=== PATIENT | male | born 1950 | race Caucasian/White ===

== ENCOUNTER 2022-10-14 10:53 | Outpatient (CLI) | payer MEDICARE, MEDICAID, SELFPAY | END 2022-10-14 10:54 | disposition home or self-care (01) | LOC: INJ CL 10:56 | PROVIDERS: PCP Surgery; Visit Provider Family Medicine | DX: M54.16 Radiculopathy, lumbar region (principal); M51.36 Other intervertebral disc degeneration, lumbar region | CPT/HCPCS: 64483; J1100; Q9966 ==

== ENCOUNTER 2022-12-26 13:49 | Inpatient (IN) | payer MEDICARE, MEDICAID, SELFPAY ==
[2022-12-26] VITALS (55 sets, daily range): BP systolic 109–134; BP diastolic 68–90; PULSE 75–93; RESP 16; TEMP 37; O2SAT 88–97; BMI 30.2; BMI 31.0
--- NOTE | 2022-12-26 13:56 | CRLHL7_ITS ---
For Patients: As a result of the Century Cures Act, medical imaging exams and procedure reports are released immediately into your electronic medical record. You may view this report before your referring provider. If you have questions, please contact your health care provider. INDICATION: Shortness of breath TECHNIQUE: Chest 2 views. COMPARISON: None FINDINGS: Cardiovascular and mediastinum: Heart size and vasculature are normal in caliber and appearance. Mediastinum is within normal limits. Either hernia. Lungs and pleural spaces: Lungs are clear. No sign of infiltrate or mass. No sign of pleural effusion. No pneumothorax. Bones and soft tissues: Change changes thoracic spine. IMPRESSION: No acute findings. Hiatal hernia. Dictated by Man Antoine MD @ 12/26/2022 2:39:06 PM (Electronically Signed)
[2022-12-26 14:08] LABS: Lactate* 2.2 mmol/L (0.5-1.9)
[2022-12-26 14:11] LABS: Basophils Percent Auto 0.2 % (0.0-3.0); Eosinophils Percent Auto 0.1 % (0.0-7.0); Hematocrit 44.1 % (37.0-53.0); Hemoglobin* 14.9 gm/dL (13.5-17.5); Immature Granulocytes Pct Auto 1.1 %; Lymphocytes Percent Auto 1.5 % (20-44); Mean Corpuscular HGB Conc 34 gm/dL (32-36); Mean Corpuscular Hemoglobin 28 pg (26-34); Mean Corpuscular Volume 82 fL (80-100); Monocytes Percent Auto 16.6 % (0.0-11.0); Neutrophils Percent Auto 80.5 % (42.0-72.0); Platelet Count* 117 K/uL (140-440); RDW Coefficient of Variation % 12.8 % (11.5-15.5); Red Blood Count 5.39 m/uL (4.30-5.90); White Blood Count* 18.86 K/uL (4.50-11.00)
[2022-12-26 14:28] LABS: Albumin* 4.1 g/dL (3.3-5.0); Chloride* 102 mmol/L (96-114); Sodium* 137 mmol/L (135-149)
[2022-12-26 14:29] LABS: Potassium* 3.8 mmol/L (3.6-5.1)
[2022-12-26 14:30] LABS: Creatinine* 1.4 mg/dL (0.5-1.5); Est. Creatinine Clearance* 57.08; Estimated Glomerular Filt Rate 54 ml/min; Mono Screen* Negative (Negative)
[2022-12-26 14:31] LABS: Alanine Aminotransferase* 135 U/L (4-50); Alkaline Phosphatase* 83 U/L (40-150); Aspartate Amino Transferase* 264 U/L (12-35); Bilirubin Direct* 2.5 mg/dL (0.0-0.5); Bilirubin Total* 6.9 mg/dL (0.1-1.5); Blood Urea Nitrogen* 23 mg/dL (7-30); Calcium* 8.9 mg/dL (8.4-10.6); Carbon Dioxide* 30 mmol/L (20-32); Glucose* 116 mg/dL (60-115); Total Protein* 7.7 g/dL (6.0-8.3)
[2022-12-26 14:33] LABS: Acetaminophen* < 10.0 ug/mL (10.0-30.0); Ethanol* < 0.01 % (0.01-0.03)
[2022-12-26 14:34] LABS: C Reactive Protein* 2.3 mg/dL (0.5-1.0)
[2022-12-26] MEDS: 0.9 % SODIUM CHLORIDE 500 ML 500 ML IV (14:34)
--- NOTE | 2022-12-26 14:35 | CRLHL7_ITS ---
For Patients: As a result of the Century Cures Act, medical imaging exams and procedure reports are released immediately into your electronic medical record. You may view this report before your referring provider. If you have questions, please contact your health care provider. INDICATION: Elevated liver enzymes. TECHNIQUE: Ultrasound abdomen limited. Sonographic images of the right upper quadrant were obtained using almonte-scale and color Doppler images. COMPARISON: None FINDINGS: Liver: Increased echogenicity of the liver parenchyma. Bile ducts: Intrahepatic bile ducts are not dilated. Mild dilation of the common bile duct, measures up to 0.9 cm. No choledocholithiasis identified sonographically. Gallbladder: Multiple dependent small gallstones. Focal fatty sparing is present in the liver adjacent to the gallbladder fossa, no significant pericholecystic fluid. Negative sonographic Cook`s sign. Pancreas: Pancreas is poorly visualized secondary to acoustic shadowing from overlying/adjacent bowel gas. Right kidney: The right kidney measures 12.3 cm in length. No renal calculi or significant hydronephrosis is identified. Aorta: No aneurysmal dilation. IVC is patent. IMPRESSION: 1. Increased echogenicity of the liver parenchyma, compatible with diffuse hepatic steatosis. 2. Mild dilation of the common bile duct measuring up to 0.9 cm. No choledocholithiasis is identified sonographically. Recommend correlation with serum alkaline phosphatase. 3. Cholelithiasis, without secondary signs of acute cholecystitis. Dictated by Dorita Calle MD @ 12/26/2022 4:18:49 PM (Electronically Signed)
[2022-12-26 14:43] LABS: Slide Review Reflex Yes; Troponin I* 0.01 ng/mL (0.01-0.04)
[2022-12-26 14:44] LABS: Slide Review Acceptable Review (Acceptable)
[2022-12-26 14:48] LABS: PCR FLU A Negative PCR FLU A (Negative); PCR FLU B Negative PCR FLU B (Negative)
[2022-12-26 14:52] LABS: Erythrocyte SedimentationRate* 5 mm/hr (2-15)
[2022-12-26 14:53] LABS: SARS PCR* Negative SARS-CoV-2 (Negative)
--- NOTE | 2022-12-26 15:11 | CRLHL7_ITS ---
For Patients: As a result of the Century Cures Act, medical imaging exams and procedure reports are released immediately into your electronic medical record. You may view this report before your referring provider. If you have questions, please contact your health care provider. INDICATION: Fever. Elevated liver enzymes. TECHNIQUE: CT abdomen and pelvis acquired with 99 mL Isovue 370 contrast. COMPARISON: Abdomen ultrasound earlier same day dated 12/26/2022. FINDINGS: Lower chest: No focal consolidation. Bibasilar subsegmental atelectasis. Liver: Diffuse hepatic steatosis. No suspicious focal hepatic lesion. Gallbladder and bile ducts: Extensive cholelithiasis. There is trace amount of gallbladder wall edema, however the gallbladder itself is not distended and no pericholecystic inflammatory changes are present. The common bile duct measures up to 0.8 cm, no calcified choledocholithiasis is identified. Pancreas: Unremarkable. Spleen: Unremarkable. Adrenal glands: Subcentimeter left adrenal nodules, too small to characterize. Kidneys: Kidneys enhance symmetrically, without hydronephrosis. Simple appearing left renal cysts are noted. Too small to characterize hypodense right renal lesions. Retroperitoneum: No lymphadenopathy. Bowel and mesentery: Bowel is nonobstructed. Scattered colonic diverticulosis, without evidence of acute diverticulitis. Normal appendix. No significant ascites. Large hiatal hernia. No pneumoperitoneum. Bladder: Unremarkable for degree of distension. Reproductive organs: Significant prostatomegaly. Pelvic lymph nodes: No lymphadenopathy. Vessels: Scattered atherosclerotic calcifications. Abdominal wall: Small fat filled bilateral inguinal hernias. Bones: Multilevel degenerative changes of the spine. No suspicious/aggressive focal osseous lesion. IMPRESSION: 1. Extensive cholelithiasis. Trace amount of gallbladder wall edema is present, however the gallbladder itself is not distended and no pericholecystic inflammatory changes are present. 2. Common bile duct remains mildly dilated measuring up to 0.8 cm. No calcified choledocholithiasis is identified. 3. Large hiatal hernia. 4. Significant prostatomegaly. Correlate with serum PSA. 5. Additional incidental findings as above. Please note that all CT scans at this facility use dose modulation, iterative reconstruction, and/or weight-based dosing when appropriate to reduce radiation dose to as low as reasonably achievable. Dictated by Dorita Calle MD @ 12/26/2022 5:52:45 PM (Electronically Signed)
[2022-12-26 15:55] LABS: Ammonia* < 9.0 umol/L (13.1-30.0)
[2022-12-26 16:48] LABS: Lactate* 1.6 mmol/L (0.5-1.9)
--- NOTE | 2022-12-26 17:09 | ED.GENADULT ---
HPI - General Adult General Chief complaint: Dizziness/Vertigo Stated complaint: Possible stroke Time Seen by Provider: 12/26/22 13:55 Source: patient Mode of arrival: wheelchair Limitations: no limitations History of Present Illness HPI narrative: 72-year-old male coming in today saying that he has not felt good since last night. Complains of feeling lightheaded. He denies headache, blurry vision, slurred speech, nausea vomiting, chest or abdominal pain. He denies any diarrhea or constipation. He denies any urinary symptoms. He denies swelling of the extremities. He denies any joint pain. He does complain of generally not feeling well and fatigue. He tells me that he usually uses a cane to get around but since last night has needed to use 2 canes because he feels weak. No recent travel. No sick contacts that he is aware of. He denies any focal neurologic deficits, changes in his speech, changes in mentation. Of note, he did a right knee steroid injection last week. Related Data Home Medications Medication Instructions Recorded Confirmed albuterol sulfate 90 mcg/actuation 2 inh inhalation Q4H PRN 12/26/22 12/26/22 aerosol inhaler (Ventolin HFA) amlodipine 10 mg tablet 10 mg PO DAILY 12/26/22 12/26/22 calcipotriene 0.005 % topical 1 applic topical DAILY PRN 12/26/22 12/26/22 cream (Dovonex) carvedilol 25 mg tablet 50 mg PO BID 12/26/22 12/26/22 diclofenac sodium 1 % topical gel 2 g topical QID PRN 12/26/22 12/26/22 gabapentin 300 mg capsule 300 mg PO BID 12/26/22 12/26/22 hydrochlorothiazide 25 mg tablet 25 mg PO DAILY 12/26/22 12/26/22 lisinopril 40 mg tablet 40 mg PO DAILY 12/26/22 12/26/22 naloxegol 25 mg tablet (Movantik) 25 mg PO DAILY 12/26/22 12/26/22 omeprazole 20 mg capsule,delayed 20 mg PO DAILY 12/26/22 12/26/22 release oxycodone-acetaminophen 7.5 mg-325 1 tab PO Q6H 12/26/22 12/26/22 mg tablet rivaroxaban 20 mg tablet (Xarelto) 20 mg PO DAILY 12/26/22 12/26/22 secukinumab 150 mg/mL subcutaneous 150 mg subcut .MONTHLY 12/26/22 12/26/22 pen injector (Cosentyx Pen 300 mg/2 Pens () sildenafil (pulm.hypertension) 20 40 - 100 mg PO PRN PRN sexual 12/26/22 12/26/22 mg tablet activity spironolactone 100 mg tablet 100 mg PO DAILY 12/26/22 12/26/22 sulfasalazine 500 mg tablet 1.5 g PO BID 12/26/22 12/26/22 triamcinolone acetonide 0.5 % 1 applic topical BID PRN 12/26/22 12/26/22 topical cream Allergies Allergy/AdvReac Type Severity Reaction Status Date / Time ibuprofen Allergy Verified 12/26/22 15:33 naproxen Allergy Verified 12/26/22 15:33 Review of Systems Status of ROS: Reports: 10 or more systems reviewed and unremarkable except as noted in History and below PFSH FOR[facility] Medical History (Updated 12/26/22 @ 19:24 by Damaris Swift MD) BPH w urinary obs/LUTS Chronic pain GERD (gastroesophageal reflux disease) History of prostate cancer History of pulmonary embolus (PE) Hypertension Lumbar stenosis Narcotic dependency, continuous Personal history of DVT (deep vein thrombosis) Psoriatic arthritis Surgical History (Updated 12/26/22 @ 18:49 by Bárbara Horowitz MD) H/O lumbosacral spine surgery H/O vasectomy History of inguinal hernia repair, bilateral History of oral surgery Umbilical hernia Social History Smoking Status: Former smoker What tobacco products do you use: cigarettes Smoking quit date/years: <= 15 years ago Do you use any of these nicotine containing products: Smokeless Tobacco Second hand tobacco smoke exposure: No How often do you have a drink containing alcohol: 2-4 times a month AUDIT-C Alcohol total score: 2 Non-prescribed substance use: denies use service: Yes Exam Narrative: Exam Narrative: Well-nourished well-developed patient in no acute distress. Alert and oriented x3. Answers questions appropriately. Mood and affect are appropriate. Thoughts are goal oriented and rational. No tangential or magical thinking noted. Patient speaks in full sentences without needing to catch his breath. Speech is not slurred or pressured. He does need assistance with ambulation and cannot ambulate independently today. HEENT: Normocephalic atraumatic. Pupils are equally round reactive to light. Extraocular muscles are intact. Conjunctivae are moist without any icterus noted. Moist mucous membranes. Posterior pharynx is normal. Neck is soft without any lymphadenopathy or thyromegaly. No masses are appreciated. Cardiovascular: Heart is regular rate and rhythm S1 and S2 are present without any murmurs. Lungs: Clear to auscultation bilaterally no wheezes rhonchi or rales are appreciated. Patient takes deep breaths without any discomfort. Abdomen: Soft and nontender nondistended with normal bowel sounds. No guarding or rebound. No masses or organomegaly appreciated. Extremities: Bilateral lower extremities are without edema. Normal DP and PT pulses. Skin: Well perfused without any obvious rashes. Strength is 5/5 of the upper and lower extremities. Reflexes are 2+ and symmetric at the knees. No pronator drift. Cranial nerves 3-12 are normal. [id number] is normal. There is no nystagmus either horizontally or vertically. Const: Vital Signs, click to edit/add: Vital Signs - 24 hr 12/26/22 13:55 12/26/22 13:55 12/26/22 14:02 Pulse Rate 88 Pulse Rate [Pulse Oximeter] 93 Blood Pressure 111/71 Blood Pressure [Ri ght Upper Arm] 114/81 Pulse Oximetry 95 96 91 Oxygen Delivery Me thod Room Air 12/26/22 14:03 12/26/22 14:26 12/26/22 14:30 Pulse Rate 87 90 89 Pulse Rate [Pulse Oximeter] Blood Pressure Blood Pressure [Ri ght Upper Arm] Pulse Oximetry 94 90 90 Oxygen Delivery Me thod 12/26/22 14:31 12/26/22 14:32 12/26/22 14:45 Pulse Rate 86 87 84 Pulse Rate [Pulse Oximeter] Blood Pressure 110/69 Blood Pressure [Ri ght Upper Arm] Pulse Oximetry 89 88 90 Oxygen Delivery Me thod 12/26/22 14:46 12/26/22 15:00 12/26/22 15:02 Pulse Rate 83 82 81 Pulse Rate [Pulse Oximeter] Blood Pressure 116/72 110/71 Blood Pressure [Ri ght Upper Arm] Pulse Oximetry 90 89 91 Oxygen Delivery Me thod 12/26/22 15:15 12/26/22 15:17 12/26/22 15:30 Pulse Rate 80 77 82 Pulse Rate [Pulse Oximeter] Blood Pressure 109/68 Blood Pressure [Ri ght Upper Arm] Pulse Oximetry 94 93 90 Oxygen Delivery Me thod 12/26/22 15:32 12/26/22 15:45 12/26/22 15:46 Pulse Rate 85 76 75 Pulse Rate [Pulse Oximeter] Blood Pressure 110/70 112/70 Blood Pressure [Ri ght Upper Arm] Pulse Oximetry 92 93 92 Oxygen Delivery Me thod 12/26/22 16:00 12/26/22 16:02 12/26/22 16:23 Pulse Rate 77 78 81 Pulse Rate [Pulse Oximeter] Blood Pressure 122/73 Blood Pressure [Ri ght Upper Arm] Pulse Oximetry 92 91 96 Oxygen Delivery Me thod 12/26/22 16:30 12/26/22 16:31 12/26/22 16:45 Pulse Rate 82 81 81 Pulse Rate [Pulse Oximeter] Blood Pressure 123/77 Blood Pressure [Ri ght Upper Arm] Pulse Oximetry 95 94 95 Oxygen Delivery Me thod 12/26/22 16:46 Pulse Rate 80 Pulse Rate [Pulse Oximeter] Blood Pressure 134/80 Blood Pressure [Ri ght Upper Arm] Pulse Oximetry 95 Oxygen Delivery Me thod Course Course Hospital Course: Lab work was obtained and was abnormal showing elevated white cell count elevated liver enzymes. Because of this we proceeded with an abdominal ultrasound which showed gallstones and a dilated biliary duct but no evidence of cholecystitis. Abdominal CT scan showed potential edema of the gallbladder wall, stones and the dilated duct. I did speak with her surgeon Dr. Horowitz, who recommended an ERCP. We called around to all the local hospitals and were not able to get a hospital bed nor just an ERCP. Therefore patient will be admitted to our hospital for continued IV antibiotics and fluids. He did receive ertapenem while he was in the ER. GI physician at [facility] was consulted, Dr. Hussein, said that they could potentially do an ERCP on Thursday but could not do this over the weekend. After fluids, patient states that he feels about 50% better already. Lactate was 2.2 prior to fluids, 1.6 afterwards. Vital Signs Vital signs: Initial Vital Signs Temperature Source Temporal Artery Scan 12/26/22 13:55 Pulse Rate 93 12/26/22 13:55 Blood Pressure 114/81 12/26/22 13:55 Blood Pressure Mean 92 12/26/22 13:55 Blood Pressure Position Supine 12/26/22 13:55 Pulse Oximetry 95 12/26/22 13:55 Oxygen Delivery Method 12/26/22 13:55 Vital Signs Pulse Rate 93 12/26/22 13:55 Blood Pressure 114/81 12/26/22 13:55 Pulse Oximetry 95 12/26/22 13:55 Oxygen Delivery Method 12/26/22 13:55 Pulse Rate 80 12/26/22 16:46 Blood Pressure 134/80 12/26/22 16:46 Pulse Oximetry 95 12/26/22 16:46 Oxygen Delivery Method 12/26/22 13:55 Medical Decision Making MDM Narrative Medical decision making narrative: Leukocytosis, possible choledocholithiasis requiring ERCP with elevated liver enzymes and elevated bilirubin. Patient will be admitted for IV antibiotics and fluids at this time. Plan per above Medical Records Medical records reviewed: Yes I reviewed the patient's medical records Lab Data Lab results reviewed: Yes I reviewed the patient's lab results Labs: Lab Results 12/26/22 12/26/22 12/26/22 Range/Units 14:02 14:02 14:02 WBC 18.86 H (4.50-11.00) K/uL RBC 5.39 (4.30-5.90) m/uL Hgb 14.9 (13.5-17.5) gm/dL Hct 44.1 (37.0-53.0) % MCV 82 (80-100) fL MCH 28 (26-34) pg MCHC 34 (32-36) gm/dL RDW Coeff of Estella 12.8 (11.5-15.5) % Plt Count 117 L (140-440) K/uL Neut % (Auto) 80.5 H (42.0-72.0) % Lymph % (Auto) 1.5 L (20-44) % [place] % (Auto) 16.6 H (0.0-11.0) % Eos % (Auto) 0.1 (0.0-7.0) % Baso % (Auto) 0.2 (0.0-3.0) % Neut # (Auto) 15.20 H (1.7-7.0) K/uL Lymph # (Auto) 0.30 L (0.90-2.90) K/uL [place] # (Auto) 3.10 H (0.00-0.90) K/UL Eos # (Auto) 0.00 (0.00-0.50) K/uL Baso # (Auto) 0.00 (0.00-0.30) K/uL Diff Slide Review Acceptable Review (Acceptable) ESR 5 (2-15) mm/hr Sodium (135-149) mmol/L Potassium (3.6-5.1) mmol/L Chloride (96-114) mmol/L Carbon Dioxide (20-32) mmol/L BUN (7-30) mg/dL Creatinine (0.5-1.5) mg/dL Estimated Creat Clear Estimated GFR ml/min Glucose (60-115) mg/dL Lactate (0.5-1.9) mmol/L Calcium (8.4-10.6) mg/dL Total Bilirubin (0.1-1.5) mg/dL Direct Bilirubin (0.0-0.5) mg/dL AST (12-35) U/L ALT (4-50) U/L Alkaline Phosphatase (40-150) U/L Ammonia (13.1-30.0) umol/L Troponin I (0.01-0.04) ng/mL C-Reactive Protein (0.5-1.0) mg/dL Total Protein (6.0-8.3) g/dL Albumin (3.3-5.0) g/dL TSH (0.270-4.20) uIU/mL Urine Color (Yellow) Urine Appearance (Clear) Urine pH (5.0-8.5) Ur Specific [place] (1.000-1.030) Urine Protein (Negative) Urine Glucose (UA) (Negative) Urine Ketones (Negative) Urine Blood (Negative) Urine Nitrite (Negative) Urine Bilirubin (Negative) Urine Urobilinogen (0.2-1.0) Ur Leukocyte Esterase (Negative) Urine RBC (0-2) Urine WBC (0-5) Ur Squamous Epith Cells (None-Few) Urine Bacteria (None) Urine Opiates Screen (Negative) Ur Oxycodone Screen (Negative) Urine Methadone Screen (Negative) Ur Propoxyphene Screen (Negative) Acetaminophen (10.0-30.0) ug/mL Ur Barbiturates Screen (Negative) U Tricyclic Antidepress (Negative) Ur Phencyclidine Scrn (Negative) Ur Amphetamines Screen (Negative) U Methamphetamines Scrn (Negative) U Benzodiazepines Scrn (Negative) Urine Cocaine Screen (Negative) U Marijuana (THC) Screen (Negative) Ur Drug Screen Comment Ethyl Alcohol (0.01-0.03) % SARS-CoV-2 (PCR) (Negative) Monoscreen Negative (Negative) Influenza Type A (PCR) (Negative) Influenza Type B (PCR) (Negative) POC Troponin I 12/26/22 12/26/22 12/26/22 Range/Units 14:02 14:02 14:02 WBC (4.50-11.00) K/uL RBC (4.30-5.90) m/uL Hgb (13.5-17.5) gm/dL Hct (37.0-53.0) % MCV (80-100) fL MCH (26-34) pg MCHC (32-36) gm/dL RDW Coeff of Estella (11.5-15.5) % Plt Count (140-440) K/uL Neut % (Auto) (42.0-72.0) % Lymph % (Auto) (20-44) % [place] % (Auto) (0.0-11.0) % Eos % (Auto) (0.0-7.0) % Baso % (Auto) (0.0-3.0) % Neut # (Auto) (1.7-7.0) K/uL Lymph # (Auto) (0.90-2.90) K/uL [place] # (Auto) (0.00-0.90) K/UL Eos # (Auto) (0.00-0.50) K/uL Baso # (Auto) (0.00-0.30) K/uL Diff Slide Review (Acceptable) ESR (2-15) mm/hr Sodium 137 (135-149) mmol/L Potassium 3.8 (3.6-5.1) mmol/L Chloride 102 (96-114) mmol/L Carbon Dioxide 30 (20-32) mmol/L BUN 23 (7-30) mg/dL Creatinine 1.4 (0.5-1.5) mg/dL Estimated Creat Clear 57.08 Estimated GFR 54 ml/min Glucose 116 H (60-115) mg/dL Lactate 2.2 H (0.5-1.9) mmol/L Calcium 8.9 (8.4-10.6) mg/dL Total Bilirubin 6.9 H (0.1-1.5) mg/dL Direct Bilirubin 2.5 H (0.0-0.5) mg/dL AST 264 H (12-35) U/L ALT 135 H (4-50) U/L Alkaline Phosphatase 83 (40-150) U/L Ammonia (13.1-30.0) umol/L Troponin I 0.01 (0.01-0.04) ng/mL C-Reactive Protein 2.3 H (0.5-1.0) mg/dL Total Protein 7.7 (6.0-8.3) g/dL Albumin 4.1 (3.3-5.0) g/dL TSH 4.570 H (0.270-4.20) uIU/mL Urine Color (Yellow) Urine Appearance (Clear) Urine pH (5.0-8.5) Ur Specific [place] (1.000-1.030) Urine Protein (Negative) Urine Glucose (UA) (Negative) Urine Ketones (Negative) Urine Blood (Negative) Urine Nitrite (Negative) Urine Bilirubin (Negative) Urine Urobilinogen (0.2-1.0) Ur Leukocyte Esterase (Negative) Urine RBC (0-2) Urine WBC (0-5) Ur Squamous Epith Cells (None-Few) Urine Bacteria (None) Urine Opiates Screen (Negative) Ur Oxycodone Screen (Negative) Urine Methadone Screen (Negative) Ur Propoxyphene Screen (Negative) Acetaminophen < 10.0 L (10.0-30.0) ug/mL Ur Barbiturates Screen (Negative) U Tricyclic Antidepress (Negative) Ur Phencyclidine Scrn (Negative) Ur Amphetamines Screen (Negative) U Methamphetamines Scrn (Negative) U Benzodiazepines Scrn (Negative) Urine Cocaine Screen (Negative) U Marijuana (THC) Screen (Negative) Ur Drug Screen Comment Ethyl Alcohol < 0.01 L (0.01-0.03) % SARS-CoV-2 (PCR) (Negative) Monoscreen (Negative) Influenza Type A (PCR) (Negative) Influenza Type B (PCR) (Negative) POC Troponin I 12/26/22 12/26/22 12/26/22 Range/Units 14:02 14:02 15:26 WBC (4.50-11.00) K/uL RBC (4.30-5.90) m/uL Hgb (13.5-17.5) gm/dL Hct (37.0-53.0) % MCV (80-100) fL MCH (26-34) pg MCHC (32-36) gm/dL RDW Coeff of Estella (11.5-15.5) % Plt Count (140-440) K/uL Neut % (Auto) (42.0-72.0) % Lymph % (Auto) (20-44) % [place] % (Auto) (0.0-11.0) % Eos % (Auto) (0.0-7.0) % Baso % (Auto) (0.0-3.0) % Neut # (Auto) (1.7-7.0) K/uL Lymph # (Auto) (0.90-2.90) K/uL [place] # (Auto) (0.00-0.90) K/UL Eos # (Auto) (0.00-0.50) K/uL Baso # (Auto) (0.00-0.30) K/uL Diff Slide Review (Acceptable) ESR (2-15) mm/hr Sodium (135-149) mmol/L Potassium (3.6-5.1) mmol/L Chloride (96-114) mmol/L Carbon Dioxide (20-32) mmol/L BUN (7-30) mg/dL Creatinine (0.5-1.5) mg/dL Estimated Creat Clear Estimated GFR ml/min Glucose (60-115) mg/dL Lactate (0.5-1.9) mmol/L Calcium (8.4-10.6) mg/dL Total Bilirubin (0.1-1.5) mg/dL Direct Bilirubin (0.0-0.5) mg/dL AST (12-35) U/L ALT (4-50) U/L Alkaline Phosphatase (40-150) U/L Ammonia < 9.0 L (13.1-30.0) umol/L Troponin I (0.01-0.04) ng/mL C-Reactive Protein (0.5-1.0) mg/dL Total Protein (6.0-8.3) g/dL Albumin (3.3-5.0) g/dL TSH (0.270-4.20) uIU/mL Urine Color (Yellow) Urine Appearance (Clear) Urine pH (5.0-8.5) Ur Specific [place] (1.000-1.030) Urine Protein (Negative) Urine Glucose (UA) (Negative) Urine Ketones (Negative) Urine Blood (Negative) Urine Nitrite (Negative) Urine Bilirubin (Negative) Urine Urobilinogen (0.2-1.0) Ur Leukocyte Esterase (Negative) Urine RBC (0-2) Urine WBC (0-5) Ur Squamous Epith Cells (None-Few) Urine Bacteria (None) Urine Opiates Screen (Negative) Ur Oxycodone Screen (Negative) Urine Methadone Screen (Negative) Ur Propoxyphene Screen (Negative) Acetaminophen (10.0-30.0) ug/mL Ur Barbiturates Screen (Negative) U Tricyclic Antidepress (Negative) Ur Phencyclidine Scrn (Negative) Ur Amphetamines Screen (Negative) U Methamphetamines Scrn (Negative) U Benzodiazepines Scrn (Negative) Urine Cocaine Screen (Negative) U Marijuana (THC) Screen (Negative) Ur Drug Screen Comment Ethyl Alcohol (0.01-0.03) % SARS-CoV-2 (PCR) Negative SARS-CoV-2 (Negative) Monoscreen (Negative) Influenza Type A (PCR) Negative PCR FLU A (Negative) Influenza Type B (PCR) Negative PCR FLU B (Negative) POC Troponin I Cancelled 12/26/22 12/26/22 12/26/22 Range/Units 16:44 17:45 17:45 WBC (4.50-11.00) K/uL RBC (4.30-5.90) m/uL Hgb (13.5-17.5) gm/dL Hct (37.0-53.0) % MCV (80-100) fL MCH (26-34) pg MCHC (32-36) gm/dL RDW Coeff of Estella (11.5-15.5) % Plt Count (140-440) K/uL Neut % (Auto) (42.0-72.0) % Lymph % (Auto) (20-44) % [place] % (Auto) (0.0-11.0) % Eos % (Auto) (0.0-7.0) % Baso % (Auto) (0.0-3.0) % Neut # (Auto) (1.7-7.0) K/uL Lymph # (Auto) (0.90-2.90) K/uL [place] # (Auto) (0.00-0.90) K/UL Eos # (Auto) (0.00-0.50) K/uL Baso # (Auto) (0.00-0.30) K/uL Diff Slide Review (Acceptable) ESR (2-15) mm/hr Sodium (135-149) mmol/L Potassium (3.6-5.1) mmol/L Chloride (96-114) mmol/L Carbon Dioxide (20-32) mmol/L BUN (7-30) mg/dL Creatinine (0.5-1.5) mg/dL Estimated Creat Clear Estimated GFR ml/min Glucose (60-115) mg/dL Lactate 1.6 (0.5-1.9) mmol/L Calcium (8.4-10.6) mg/dL Total Bilirubin (0.1-1.5) mg/dL Direct Bilirubin (0.0-0.5) mg/dL AST (12-35) U/L ALT (4-50) U/L Alkaline Phosphatase (40-150) U/L Ammonia (13.1-30.0) umol/L Troponin I (0.01-0.04) ng/mL C-Reactive Protein (0.5-1.0) mg/dL Total Protein (6.0-8.3) g/dL Albumin (3.3-5.0) g/dL TSH (0.270-4.20) uIU/mL Urine Color Yellow (Yellow) Urine Appearance Clear (Clear) Urine pH 7.0 (5.0-8.5) Ur Specific [place] 1.010 (1.000-1.030) Urine Protein Negative (Negative) Urine Glucose (UA) Negative (Negative) Urine Ketones Negative (Negative) Urine Blood 2+ A (Negative) Urine Nitrite Negative (Negative) Urine Bilirubin 2+ A (Negative) Urine Urobilinogen 2.0 A (0.2-1.0) Ur Leukocyte Esterase Negative (Negative) Urine RBC 5-10 A (0-2) Urine WBC 0-2 (0-5) Ur Squamous Epith Cells Few (None-Few) Urine Bacteria Few A (None) Urine Opiates Screen Negative (Negative) Ur Oxycodone Screen POSITIVE A* (Negative) Urine Methadone Screen Negative (Negative) Ur Propoxyphene Screen Negative (Negative) Acetaminophen (10.0-30.0) ug/mL Ur Barbiturates Screen Negative (Negative) U Tricyclic Antidepress Negative (Negative) Ur Phencyclidine Scrn Negative (Negative) Ur Amphetamines Screen Negative (Negative) U Methamphetamines Scrn Negative (Negative) U Benzodiazepines Scrn Negative (Negative) Urine Cocaine Screen Negative (Negative) U Marijuana (THC) Screen Negative (Negative) Ur Drug Screen Comment See Note Ethyl Alcohol (0.01-0.03) % SARS-CoV-2 (PCR) (Negative) Monoscreen (Negative) Influenza Type A (PCR) (Negative) Influenza Type B (PCR) (Negative) POC Troponin I Imaging Data CT scan - abdomen: Attestation: I have reviewed the pertinent imaging results. Radiologist's impression: CT abdomen and pelvis acquired with 99 mL Isovue 370 contrast. COMPARISON: Abdomen ultrasound earlier same day dated 12/26/2022. FINDINGS: Lower chest: No focal consolidation. Bibasilar subsegmental atelectasis. Liver: Diffuse hepatic steatosis. No suspicious focal hepatic lesion. Gallbladder and bile ducts: Extensive cholelithiasis. There is trace amount of gallbladder wall edema, however the gallbladder itself is not distended and no pericholecystic inflammatory changes are present. The common bile duct measures up to 0.8 cm, no calcified choledocholithiasis is identified. Pancreas: Unremarkable. Spleen: Unremarkable. Adrenal glands: Subcentimeter left adrenal nodules, too small to characterize. Kidneys: Kidneys enhance symmetrically, without hydronephrosis. Simple appearing left renal cysts are noted. Too small to characterize hypodense right renal lesions. Retroperitoneum: No lymphadenopathy. Bowel and mesentery: Bowel is nonobstructed. Scattered colonic diverticulosis, without evidence of acute diverticulitis. Normal appendix. No significant ascites. Large hiatal hernia. No pneumoperitoneum. Bladder: Unremarkable for degree of distension. Reproductive organs: Significant prostatomegaly. Pelvic lymph nodes: No lymphadenopathy. Vessels: Scattered atherosclerotic calcifications. Abdominal wall: Small fat filled bilateral inguinal hernias. Bones: Multilevel degenerative changes of the spine. No suspicious/aggressive focal osseous lesion. IMPRESSION: 1. Extensive cholelithiasis. Trace amount of gallbladder wall edema is present, however the gallbladder itself is not distended and no pericholecystic inflammatory changes are present. 2. Common bile duct remains mildly dilated measuring up to 0.8 cm. No calcified choledocholithiasis is identified. 3. Large hiatal hernia. 4. Significant prostatomegaly. Correlate with serum PSA. 5. Additional incidental findings as above. Chest x-ray: Attestation: I have reviewed the pertinent imaging results. Radiologist's impression: Chest 2 views. COMPARISON: None FINDINGS: Cardiovascular and mediastinum: Heart size and vasculature are normal in caliber and appearance. Mediastinum is within normal limits. Either hernia. Lungs and pleural spaces: Lungs are clear. No sign of infiltrate or mass. No sign of pleural effusion. No pneumothorax. Bones and soft tissues: Change changes thoracic spine. IMPRESSION: No acute findings. Hiatal hernia. US - abdomen: Attestation: I have reviewed the pertinent imaging results. Radiologist's impression: Ultrasound abdomen limited. Sonographic images of the right upper quadrant were obtained using almonte-scale and color Doppler images. COMPARISON: None FINDINGS: Liver: Increased echogenicity of the liver parenchyma. Bile ducts: Intrahepatic bile ducts are not dilated. Mild dilation of the common bile duct, measures up to 0.9 cm. No choledocholithiasis identified sonographically. Gallbladder: Multiple dependent small gallstones. Focal fatty sparing is present in the liver adjacent to the gallbladder fossa, no significant pericholecystic fluid. Negative sonographic Cook`s sign. Pancreas: Pancreas is poorly visualized secondary to acoustic shadowing from overlying/adjacent bowel gas. Right kidney: The right kidney measures 12.3 cm in length. No renal calculi or significant hydronephrosis is identified. Aorta: No aneurysmal dilation. IVC is patent. IMPRESSION: 1. Increased echogenicity of the liver parenchyma, compatible with diffuse hepatic steatosis. 2. Mild dilation of the common bile duct measuring up to 0.9 cm. No choledocholithiasis is identified sonographically. Recommend correlation with serum alkaline phosphatase. 3. Cholelithiasis, without secondary signs of acute cholecystitis. ECG Data Attestation: I personally reviewed and interpreted this ECG as follows: (Normal sinus rhythm, early repolarization, pulse of 90) Discharge Plan Discharge Clinical Impression: Dizziness, Leukocytosis, Elevated liver enzymes, Elevated bilirubin, Cholelithiasis Prescriptions: No Action sulfasalazine 500 mg tablet 1.5 g PO BID Label Comments: TAKE THREE TABLETS BY MOUTH TWICE A DAY. NEED LABS FOR FURTHER REFILLS spironolactone 100 mg tablet 100 mg PO DAILY amlodipine 10 mg tablet 10 mg PO DAILY gabapentin 300 mg capsule 300 mg PO BID Label Comments: TAKE ONE CAPSULE BY MOUTH TWICE A DAY omeprazole 20 mg capsule,delayed release(DR/EC) 20 mg PO DAILY oxycodone-acetaminophen 7.5-325 mg tablet 1 tab PO Q6H lisinopril 40 mg tablet 40 mg PO DAILY Xarelto 20 mg tablet 20 mg PO DAILY Movantik 25 mg tablet 25 mg PO DAILY Label Comments: TAKE 1 TABLET BY MOUTH BEFORE BREAKFAST Cosentyx Pen (2 Pens) 150 mg/mL pen injector 150 mg SUBCUT .MONTHLY albuterol sulfate [Ventolin HFA] 90 mcg/actuation HFA aerosol inhaler 2 inh INHALATION Q4H PRN Label Comments: INHALE 1-2 PUFFS BY MOUTH EVERY 4 HOURS IF NEEDED FOR SHORTNESS OF BREATH carvedilol 25 mg tablet 50 mg PO BID Label Comments: TAKE 2 TABLETS BY MOUTH EVERY MORNING AND 2 TABLETS EVERY EVENING. TAKE WITH MEALS diclofenac sodium 1 % gel 2 g TOPICAL QID PRN Label Comments: APPLY 4 GRAMS TO AFFECTED AREA TOPICALLY FOUR TIMES A DAY hydrochlorothiazide 25 mg tablet 25 mg PO DAILY Label Comments: TAKE ONE TABLET BY MOUTH EVERY DAY sildenafil (pulm.hypertension) 20 mg tablet 40 - 100 mg PO PRN PRN (Reason: sexual activity) Label Comments: TAKE 1-5 TABLETS BY MOUTH AN HR PRIRO TO SEXUAL ACTIVITY NOT TO EXCEED 100MG IN 24 HOURS triamcinolone acetonide 0.5 % cream 1 applic topical BID PRN calcipotriene [Dovonex] 0.005 % cream 1 applic topical DAILY PRN Rx Instructions: rub in gently and completely Follow Up/Referrals: Joel Olea MD [Primary Care Provider] -
[2022-12-26 17:55] LABS: Appearance Urine Clear (Clear); Bilirubin Urine 2+ (Negative); Blood Urine 2+ (Negative); Color Urine Yellow (Yellow); Glucose Urine Negative (Negative); Ketones Urine Negative (Negative); Leukocyte Esterase Urine Negative (Negative); Nitrite Urine Negative (Negative); Protein Urine Negative (Negative)
[2022-12-26 18:01] LABS: Amphetamine Screen Urine Negative (Negative); Barbiturate Screen Urine Negative (Negative); Benzodiazepines Screen Urine Negative (Negative); Cannabinoid Screen Urine Negative (Negative); Cocaine Screen Urine Negative (Negative); Methadone Screen Urine Negative (Negative); Methamphetamines Screen Urine Negative (Negative); Opiate Screen Urine Negative (Negative); Phencyclidine Screen Urine Negative (Negative); Tricyclic Antidepressant Urine Negative (Negative)
[2022-12-26 18:11] LABS: Oxycodone Screen Urine POSITIVE (Negative)
--- NOTE | 2022-12-26 18:11 | ED.NURSE ---
Critical result from lab: oxycodone positive. RN and updated.
[2022-12-26 18:23] LABS: Bacteria Urine Few; Squamous Epithelial Cell Urine Few (None-Few); WBC Urine 0-2 (0-5)
[2022-12-26] MEDS: PIPERACILLIN/TAZOBACTAM 3.375 GM in 0.9 % SODIUM CHLORIDE Mini-bag 100 ML IVPB ×2 (18:39→23:17)
--- NOTE | 2022-12-26 18:42 | PM.IMHP1 ---
Hospitalist- H&P: HPI History of Present Illness Date Seen: 12/26/22 Chief complaint: Possible stroke Narrative: ADMISSION HISTORY AND PHYSICAL - HOSPITALIST Chief Complaint: Dizziness, increasing back pain HPI: 72-year-old white male presents with worse than usual back pain, some dizziness/lightheadedness. He said he could tell ?something was off?. He said he thought maybe he had COVID. He also felt very weak. His wanted to call an ambulance. His symptoms have been present since last night about 11. He said he slept on and off. He seemed worse this morning. Instead of an ambulance he convinced his just to drive him to the ER and he laid across the back seat of their van. No fever. No nausea or vomiting. No diarrhea. No real abdominal pain although his back pain was more intense than usual. He has known lumbar stenosis with a previous surgery. He is on chronic opioids. He also has a history of psoriatic arthritis and severe hypertension on 5 meds. ER COURSE: Blood work showed leukocytosis with markedly elevated total bilirubin. CT abdomen pelvis, ultrasound were pursued. This showed choledocholithiasis(no definite stone but mild common bile duct dilation) with some mild gallbladder wall edema and extensive cholelithiasis. No ascites. In discussion with the general surgeon an ERCP would be necessary. No available GI services available. He was started on Zosyn and given a fluid bolus. CODE STATUS: FULL CODE EMERGENCY CONTACT PLAN: elliott Quiles, I've updated the PFSH, medications and allergies in the [facility] tabs. INVESTIGATIONS: LABS/MICRO/ECG/IMAGING Recent 12/19/22 PCP visit: He has a longstanding history of chronic?back?pain and psoriatic arthritis. He has been on pain medication for many years. He continues to not really have a change in his pain level. The worst pain is always in his low back. However he can have pain in most of his joints as well. He has been diagnosed with lumbar stenosis. He has had multiple epidural steroid injections.?His last injection was about 2 months ago and that works for a while. He continues to work with Dr. Hernandez in sports medicine for the back as well. He takes oxycodone four times a day and has for many years. He was previously on morphine as well but this was stopped a few years ago.?The oxycodone helps his knees and back about 50%.??He feels that his quality of life is substantially improved with the use of Percocet. ?He has not shown any signs of diversion or abuse of the medication in the past. ?[employer] refills have been appropriate. He feels like chewing tobacco really helps his pain as well. ?He also takes gabapentin 300 mg twice a day, Cosentyx monthly, and sulfasalazine twice a day. He rarely takes prednisone for a flare of his joint pain. ? He follows with rheumatology for psoriatic arthritis. He saw them last month. He was recommended to continue meds without changes. ? He takes Naloxegol for opioid induced constipation and that seems to work well for him. ? He takes spironolactone, lisinopril, hydrochlorothiazide, amlodipine, and carvedilol for hypertension. BP at home has been in the 160s systolic but can be in the 190s. Longstanding history of hypertension.??Follows with cardiology for this. Last saw in April. He states the pressure is higher when his back hurts. Vital signs are all stable. Blood pressure is 132/89. Pulse 80. Respirations 16. Temp 98.6?. 3% on room air WBC count 18.9, 80.5% neutrophils Hemoglobin 14.9 Platelet count low 117 ESR 5, CRP 2.3 Basic chemistries are all unremarkable. Creatinine is 1.4. Lactate initially was 2.2 and came down to 1.6 with fluids However, his total bilirubin is 6.9, direct 2.5. AST and ALT are both elevated. Alk-phos is normal. Ammonia level less than 9 TSH is mildly abnormal 4.[address] 1. Extensive cholelithiasis. Trace amount of gallbladder wall edema is present, however the gallbladder itself is not distended and no pericholecystic inflammatory changes are present. 2. Common bile duct remains mildly dilated measuring up to 0.8 cm. No calcified choledocholithiasis is identified. 3. Large hiatal hernia. 4. Significant prostatomegaly. Correlate with serum PSA. 5. Additional incidental findings as above Abdominal ultrasound 1. Increased echogenicity of the liver parenchyma, compatible with diffuse hepatic steatosis. 2. Mild dilation of the common bile duct measuring up to 0.9 cm. No choledocholithiasis is identified sonographically. Recommend correlation with serum alkaline phosphatase. 3. Cholelithiasis, without secondary signs of acute cholecystitis. Chest x-ray No acute findings. Hiatal hernia. Urine culture pending REVIEW OF SYSTEMS: 12-point ROS completed with patient and negative unless otherwise stated in HPI or below. PHYSICAL EXAM: CONSTITUTIONAL: Mildly disheveled, poor dentition. Alert and oriented and knows his history. VITAL SIGNS: see record. HEENT: Normocephalic, atraumatic. PERRL, EOMI, conjunctivae pink, no scleral icterus. Ears and nose externally normal. Pharynx normal. NECK: No JVD. No carotid bruit, no thyromegaly, no adenopathy. CHEST: Clear to auscultation bilaterally HEART: S1 and S2 normal. No harsh murmurs. Edema MUSCULOSKELETAL: No gross joint deformity or swelling. ABDOMEN: Fairly benign. No specific guarding or pain in the right upper quadrant NEURO: Cranial nerves intact. Grossly intact. No asymmetric findings. SKIN: No rashes, petechiae, concerning changes PSYCHIATRIC: Euthymic. ADMIT TO MEDSURG: FLOOR CARE DVT: Lovenox GI: PO intake Time spent: 70 minutes examining patient, conferring with family and patient, care staff, developing care plan [facility] Medical History (Updated 12/26/22 @ 23:01 by Bárbara Horowitz MD) BPH w urinary obs/LUTS Chronic pain GERD (gastroesophageal reflux disease) History of prostate cancer History of pulmonary embolus (PE) Hypertension Lumbar stenosis Narcotic dependency, continuous Personal history of DVT (deep vein thrombosis) Psoriatic arthritis Surgical History (Updated 12/26/22 @ 18:49 by Bárbara Horowitz MD) H/O lumbosacral spine surgery H/O vasectomy History of inguinal hernia repair, bilateral History of oral surgery Umbilical hernia Social History (Updated 12/26/22 @ 22:47 by Bárbara Horowitz MD) Narrative: , lives in [place]. Usually sees the [facility] for routine care. 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 [employer]. Chews tobacco, no cigarettes. rare social alcohol. FULL CODE. Highest level of school completed/degree received: Bachelor's degree Smoking Status: Former smoker What tobacco products do you use: cigarettes Smoking quit date/years: <= 15 years ago Do you use any of these nicotine containing products: Smokeless Tobacco Second hand tobacco smoke exposure: No How often do you have a drink containing alcohol: 2-4 times a month AUDIT-C Alcohol total score: 2 Non-prescribed substance use: denies use service: Yes Meds Home Medications and Allergies Home Medications Medication Instructions Recorded Confirmed Type albuterol sulfate 90 mcg/actuation 2 inh inhalation Q4H PRN 12/26/22 12/26/22 History aerosol inhaler (Ventolin HFA) amlodipine 10 mg tablet 10 mg PO DAILY 12/26/22 12/26/22 History calcipotriene 0.005 % topical 1 applic topical DAILY PRN 12/26/22 12/26/22 History cream (Dovonex) carvedilol 25 mg tablet 50 mg PO BID 12/26/22 12/26/22 History diclofenac sodium 1 % topical gel 2 g topical QID PRN 12/26/22 12/26/22 History gabapentin 300 mg capsule 300 mg PO BID 12/26/22 12/26/22 History hydrochlorothiazide 25 mg tablet 25 mg PO DAILY 12/26/22 12/26/22 History lisinopril 40 mg tablet 40 mg PO DAILY 12/26/22 12/26/22 History naloxegol 25 mg tablet (Movantik) 25 mg PO DAILY 12/26/22 12/26/22 History omeprazole 20 mg capsule,delayed 20 mg PO DAILY 12/26/22 12/26/22 History release oxycodone-acetaminophen 7.5 mg-325 1 tab PO Q6H 12/26/22 12/26/22 History mg tablet rivaroxaban 20 mg tablet (Xarelto) 20 mg PO DAILY 12/26/22 12/26/22 History secukinumab 150 mg/mL subcutaneous 150 mg subcut .MONTHLY 12/26/22 12/26/22 History pen injector (Cosentyx Pen 300 mg/2 Pens () sildenafil (pulm.hypertension) 20 40 - 100 mg PO PRN PRN sexual 12/26/22 12/26/22 History mg tablet activity spironolactone 100 mg tablet 100 mg PO DAILY 12/26/22 12/26/22 History sulfasalazine 500 mg tablet 1.5 g PO BID 12/26/22 12/26/22 History triamcinolone acetonide 0.5 % 1 applic topical BID PRN 12/26/22 12/26/22 History topical cream Allergies Allergy/AdvReac Type Severity Reaction Status Date / Time ibuprofen Allergy Verified 12/26/22 15:33 naproxen Allergy Verified 12/26/22 15:33 Exam Const: Vital Signs, click to edit/add: Vital Signs - 24 hr 12/26/22 13:55 12/26/22 13:55 12/26/22 14:02 Pulse Rate 88 Pulse Rate [Pulse Oximeter] 93 Blood Pressure 111/71 Blood Pressure [Ri ght Upper Arm] 114/81 Pulse Oximetry 95 96 91 Oxygen Delivery Me thod Room Air 12/26/22 14:03 12/26/22 14:26 12/26/22 14:30 Pulse Rate 87 90 89 Pulse Rate [Pulse Oximeter] Blood Pressure Blood Pressure [Ri ght Upper Arm] Pulse Oximetry 94 90 90 Oxygen Delivery Me thod 12/26/22 14:31 12/26/22 14:32 12/26/22 14:45 Pulse Rate 86 87 84 Pulse Rate [Pulse Oximeter] Blood Pressure 110/69 Blood Pressure [Ri ght Upper Arm] Pulse Oximetry 89 88 90 Oxygen Delivery Me thod 12/26/22 14:46 12/26/22 15:00 12/26/22 15:02 Pulse Rate 83 82 81 Pulse Rate [Pulse Oximeter] Blood Pressure 116/72 110/71 Blood Pressure [Ri ght Upper Arm] Pulse Oximetry 90 89 91 Oxygen Delivery Me thod 12/26/22 15:15 12/26/22 15:17 12/26/22 15:30 Pulse Rate 80 77 82 Pulse Rate [Pulse Oximeter] Blood Pressure 109/68 Blood Pressure [Ri ght Upper Arm] Pulse Oximetry 94 93 90 Oxygen Delivery Me thod 12/26/22 15:32 12/26/22 15:45 12/26/22 15:46 Pulse Rate 85 76 75 Pulse Rate [Pulse Oximeter] Blood Pressure 110/70 112/70 Blood Pressure [Ri ght Upper Arm] Pulse Oximetry 92 93 92 Oxygen Delivery Me thod 12/26/22 16:00 12/26/22 16:02 12/26/22 16:23 Pulse Rate 77 78 81 Pulse Rate [Pulse Oximeter] Blood Pressure 122/73 Blood Pressure [Ri ght Upper Arm] Pulse Oximetry [address] [facility] 12/26/22 16:30 12/26/22 16:31 12/26/22 16:45 Pulse Rate 82 81 81 Pulse Rate [Pulse Oximeter] Blood Pressure 123/77 Blood Pressure [Ri [facility] Upper Arm] Pulse Oximetry 95 [address] [facility] 12/26/22 16:46 Pulse Rate 80 Pulse Rate [Pulse Oximeter] Blood Pressure 134/80 Blood Pressure [Ri t Upper Arm] Pulse Oximetry [address] [facility] Hospitalist - H&P: Result Labs Labs: Short CBC 12/26/22 Range/Units 14:02 WBC 18.86 H (4.50-11.00) K/uL Hgb 14.9 (13.5-17.5) gm/dL Hct 44.1 (37.0-53.0) % Plt Count 117 L (140-440) K/uL BMP 12/26/22 14:02 Sodium 137 Potassium 3.8 Chloride 102 Carbon Dioxide 30 BUN 23 Creatinine 1.4 Glucose 116 H Calcium 8.9 Cardiac Enzymes 12/26/22 Range/Units 14:02 Troponin I 0.01 (0.01-0.04) ng/mL Liver Function 12/26/22 Range/Units 14:02 Total Bilirubin 6.9 H (0.1-1.5) mg/dL Direct Bilirubin 2.5 H (0.0-0.5) mg/dL AST 264 H (12-35) U/L ALT 135 H (4-50) U/L Alkaline Phosphatase 83 (40-150) U/L Albumin 4.1 (3.3-5.0) g/dL Urine 12/26/22 Range/Units 17:45 Urine Color Yellow (Yellow) Urine Appearance Clear (Clear) Urine pH 7.0 (5.0-8.5) Ur Specific [place] 1.010 (1.000-1.030) Urine Protein Negative (Negative) Urine Glucose (UA) Negative (Negative) Assessment and Plan Assessment and plan (1) Cholelithiasis with choledocholithiasis: Problem comment: -Zosyn q.6. There are no blood cultures pending. No abdominal pain upon arrival. Will give a fluid bolus maintenance fluids, keeping him on just sips chips. Repeat his bilirubin in the morning. Consider an MRCP if available this weekend. Try again to get an ERCP arranged. General surgery aware. Status: Acute (2) Hyperbilirubinemia: Problem comment: As above. Status: Acute (3) Hypertension: Problem comment: 5 med regimen-carvedilol, lisinopril, spironolactone, hydrochlorothiazide, amlodipine. Follows with Cardiology. However given his relatively normal blood pressure, I will proceed cautiously holding his amlodipine, hydrochlorothiazide, spironolactone. We concerning and these back if he becomes hypertensive. Status: Acute (4) Narcotic dependency, continuous: Problem comment: Will continue his Oxy q.i.d. with some room to improve pain management as needed. Status: Acute (5) Personal history of DVT (deep vein thrombosis): Problem comment: Will hold his Xarelto, covering him with Lovenox in case he needs a surgical procedure likely ERCP or E ventrally a lap choly with interoperative cholangiogram. Status: Acute (6) History of pulmonary embolus (PE): Problem comment: Lovenox subQ Status: Acute (7) BPH w urinary obs/LUTS: Status: Acute (8) History of prostate cancer: Status: Acute (9) Psoriatic arthritis: Status: Acute (10) Lumbar stenosis: Status: Acute (11) Chronic pain: Problem comment: On narcotics chronically. 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 Followed by sports medicine at the [facility] and gets injections. Status: Acute
[2022-12-26 22:42] LABS: Gamma Glutamyl Transpeptidase* 370 U/L (8-55); Lipase* 94 U/L (23-300)
[2022-12-26 22:44] LABS: Hemoglobin A1C* 5.29 % (0-5.6)
[2022-12-26 23:00] LABS: Free T4 Free Thyroxine* 1.13 ng/dL (0.70-1.85)
[2022-12-26] MEDS: PANTOPRAZOLE SODIUM 40 MG INJ IVP (23:11)
[2022-12-26] MEDS: GABAPENTIN 300 MG CAPSULE PO (23:11)
[2022-12-26] MEDS: 0.9 % SODIUM CHLORIDE 1000 ml 1,000 ML 250 ML IV (23:12)
[2022-12-27] VITALS (11 sets, daily range): BP systolic 109–162; BP diastolic 64–97; PULSE 64–97; RESP 16–20; TEMP 36.8–38.6; O2SAT 91–95
[2022-12-27] MEDS: 0.9 % SODIUM CHLORIDE 1000 ml 1,000 ML 100 ML IV (02:59)
--- NOTE | 2022-12-27 04:15 | PC.NURSE ---
Pt came to floor with @ 1999. Up SBA with his walker. Slight confusion at times but answers questions appropriately and follows directions. Reporting zero abdominal pain. Afebrile. Voiding. Partial incontinence at times. VS unremarkable. Tele NSR. NPO with Ice chips.
[2022-12-27] MEDS: OXYCODONE 5 MG TABLET 7.5 MG PO ×3 (04:31→17:52)
[2022-12-27] MEDS: ACETAMINOPHEN 325 MG TABLET PO (04:31)
--- NOTE | 2022-12-27 05:12 | PC.NURSE ---
Pt confusion increased over night. Forgetful of simple task and where he is. Pt Dc'd IV intact in R AC. New IV placed L FA.
[2022-12-27] MEDS: PIPERACILLIN/TAZOBACTAM 3.375 GM in 0.9 % SODIUM CHLORIDE Mini-bag 100 ML IVPB ×3 (05:41→18:37)
--- NOTE | 2022-12-27 06:07 | P.GSCN_ITS ---
History of Present Illness Consult details Date Seen: 12/27/22 Consult date: 12/27/22 Narrative: 72-year-old male with history of DVT and PE presented to emergency room with back pain and was found to have elevated liver function tests, and I was asked by Dr. Swift to see him in consultation. When asking the patient what brought him to the emergency room, he states that he was having increasing lower back pain. Patient has history of chronic back pain and the pain was worse than before. Patient takes 5 mg of oxycodone 3 times a day. He is states that he did not have any abdominal pain that was bothering him. Although, later during the interview he states that his pain in the abdomen was ?a little?. He denies any nausea vomiting. He does not eat a lot and was eating in his normal amount yesterday and the day before. I reviewed patient's laboratory and imaging findings. When he was worked up in the emergency room he was found to have an elevated WBC of 18. His liver function tests were elevated with total bilirubin of 6.9, direct bilirubin 2.5, AST to 64, ALT 135, but his alkaline phosphatase was normal. A gallbladder ultrasound was obtained that showed gallbladder wall thickening of 6 mm with no surrounding pericholecystic fluid. There was evidence of cholelithiasis and a common bile duct was measured at [address] was also obtained that showed cholelithiasis with some gallbladder wall thickening. There was no dilated small large intestine. There was no evidence of pancreatic inflammation. Review of Systems Narrative: General: no fevers HENT: no problems swallowing CV: no shortness of breath Resp: no cough GI: No nausea, vomiting, abdominal pain : no dysuria, no increased urinary frequency, no hematuria Skin: no new rashes Musculoskeletal: no back pain Neuro: no muscle weakness Psyche: no depression, no anxiety PFSH PFSH Medical History (Updated 12/27/22 @ 06:11 by Maddie Arenas MD) BPH w urinary obs/LUTS Chronic pain GERD (gastroesophageal reflux disease) History of prostate cancer History of pulmonary embolus (PE) Hypertension Lumbar stenosis Narcotic dependency, continuous Personal history of DVT (deep vein thrombosis) Psoriatic arthritis Surgical History (Updated 12/26/22 @ 18:49 by Bárbara Horowitz MD) H/O lumbosacral spine surgery H/O vasectomy History of inguinal hernia repair, bilateral History of oral surgery Umbilical hernia Social History (Updated 12/26/22 @ 22:47 by Bárbara Horowitz MD) Narrative: , lives in [place]. Usually sees the [facility] for routine care. 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 [employer]. Chews tobacco, no cigarettes. rare social alcohol. FULL CODE. Highest level of school completed/degree received: Bachelor's degree Smoking Status: Former smoker What tobacco products do you use: cigarettes Smoking quit date/years: <= 15 years ago Do you use any of these nicotine containing products: Smokeless Tobacco Second hand tobacco smoke exposure: No How often do you have a drink containing alcohol: 2-4 times a month AUDIT-C Alcohol total score: 2 Non-prescribed substance use: denies use service: Yes Meds Home Medications and Allergies Home Medications Medication Instructions Recorded Confirmed Type albuterol sulfate 90 mcg/actuation 2 inh inhalation Q4H PRN 12/26/22 12/26/22 History aerosol inhaler (Ventolin HFA) amlodipine 10 mg tablet 10 mg PO DAILY 12/26/22 12/26/22 History calcipotriene 0.005 % topical 1 applic topical DAILY PRN 12/26/22 12/26/22 History cream (Dovonex) carvedilol 25 mg tablet 50 mg PO BID 12/26/22 12/26/22 History diclofenac sodium 1 % topical gel 2 g topical QID PRN 12/26/22 12/26/22 History gabapentin 300 mg capsule 300 mg PO BID 12/26/22 12/26/22 History hydrochlorothiazide 25 mg tablet 25 mg PO DAILY 12/26/22 12/26/22 History lisinopril 40 mg tablet 40 mg PO DAILY 12/26/22 12/26/22 History naloxegol 25 mg tablet (Movantik) 25 mg PO DAILY 12/26/22 12/26/22 History omeprazole 20 mg capsule,delayed 20 mg PO DAILY 12/26/22 12/26/22 History release oxycodone-acetaminophen 7.5 mg-325 1 tab PO Q6H 12/26/22 12/26/22 History mg tablet rivaroxaban 20 mg tablet (Xarelto) 20 mg PO DAILY 12/26/22 12/26/22 History secukinumab 150 mg/mL subcutaneous 150 mg subcut .MONTHLY 12/26/22 12/26/22 History pen injector (Cosentyx Pen 300 mg/2 Pens () sildenafil (pulm.hypertension) 20 40 - 100 mg PO PRN PRN sexual 12/26/22 12/26/22 History mg tablet activity spironolactone 100 mg tablet 100 mg PO DAILY 12/26/22 12/26/22 History sulfasalazine 500 mg tablet 1.5 g PO BID 12/26/22 12/26/22 History triamcinolone acetonide 0.5 % 1 applic topical BID PRN 12/26/22 12/26/22 History topical cream Allergies Allergy/AdvReac Type Severity Reaction Status Date / Time ibuprofen Allergy Verified 12/26/22 15:33 naproxen Allergy Verified 12/26/22 15:33 Exam Narrative: Exam Narrative: General appearance: Alert, cooperative, and in no distress Pulmonary: Chest symmetric, lungs clear bilaterally Cardiovascular Heart: Regular rate and rhythm, S1, S2, no murmurs/rubs/gallops Gastrointestinal Abdominal: soft, not distended, not tender to palpation, negative Cook sign. There is a well-healed infraumbilical surgical scar. Skin: Normal skin color, texture, and turgor. No rashes or lesions. Psychiatric: Alert, cooperative, normal affect. Const: Vital Signs, click to edit/add: Vital Signs - 24 hr 12/26/22 13:55 12/26/22 13:55 12/26/22 14:02 Temperature Pulse Rate 88 Pulse Rate [Pulse Oximeter] 93 Pulse Rate [Right Radial] Pulse Rate [orthos tatic lying Right Radial] Pulse Rate [orthos tatic sitting Righ t Radial] Pulse Rate [orthos tatic standing Rig ht Radial] Respiratory Rate Blood Pressure 111/71 Blood Pressure [Ri ght Arm] Blood Pressure [Ri ght Upper Arm] 114/81 Blood Pressure [or thostatic lying Le ft Arm] Blood Pressure [or thostatic sitting] Blood Pressure [or thostatic standing Left Arm] Pulse Oximetry 95 96 91 Oxygen Delivery Me thod Room Air 12/26/22 14:03 12/26/22 14:26 12/26/22 14:30 Temperature Pulse Rate 87 90 89 Pulse Rate [Pulse Oximeter] Pulse Rate [Right Radial] Pulse Rate [orthos tatic lying Right Radial] Pulse Rate [orthos tatic sitting Righ t Radial] Pulse Rate [orthos tatic standing Rig ht Radial] Respiratory Rate Blood Pressure Blood Pressure [Ri ght Arm] Blood Pressure [Ri ght Upper Arm] Blood Pressure [or thostatic lying Le ft Arm] Blood Pressure [or thostatic sitting] Blood Pressure [or thostatic standing Left Arm] Pulse Oximetry 94 90 90 Oxygen Delivery Me thod 12/26/22 14:31 12/26/22 14:32 12/26/22 14:45 Temperature Pulse Rate 86 87 84 Pulse Rate [Pulse Oximeter] Pulse Rate [Right Radial] Pulse Rate [orthos tatic lying Right Radial] Pulse Rate [orthos tatic sitting Righ t Radial] Pulse Rate [orthos tatic standing Rig ht Radial] Respiratory Rate Blood Pressure 110/69 Blood Pressure [Ri ght Arm] Blood Pressure [Ri ght Upper Arm] Blood Pressure [or thostatic lying Le ft Arm] Blood Pressure [or thostatic sitting] Blood Pressure [or thostatic standing Left Arm] Pulse Oximetry 89 88 90 Oxygen Delivery Me thod 12/26/22 14:46 12/26/22 15:00 12/26/22 15:02 Temperature Pulse Rate 83 82 81 Pulse Rate [Pulse Oximeter] Pulse Rate [Right Radial] Pulse Rate [orthos tatic lying Right Radial] Pulse Rate [orthos tatic sitting Righ t Radial] Pulse Rate [orthos tatic standing Rig ht Radial] Respiratory Rate Blood Pressure 116/72 110/71 Blood Pressure [Ri ght Arm] Blood Pressure [Ri ght Upper Arm] Blood Pressure [or thostatic lying Le ft Arm] Blood Pressure [or thostatic sitting] Blood Pressure [or thostatic standing Left Arm] Pulse Oximetry 90 89 91 Oxygen Delivery Me thod 12/26/22 15:15 12/26/22 15:17 12/26/22 15:30 Temperature Pulse Rate 80 77 82 Pulse Rate [Pulse Oximeter] Pulse Rate [Right Radial] Pulse Rate [orthos tatic lying Right Radial] Pulse Rate [orthos tatic sitting Righ t Radial] Pulse Rate [orthos tatic standing Rig ht Radial] Respiratory Rate Blood Pressure 109/68 Blood Pressure [Ri ght Arm] Blood Pressure [Ri ght Upper Arm] Blood Pressure [or thostatic lying Le ft Arm] Blood Pressure [or thostatic sitting] Blood Pressure [or thostatic standing Left Arm] Pulse Oximetry 94 93 90 Oxygen Delivery Me thod 12/26/22 15:32 12/26/22 15:45 12/26/22 15:46 Temperature Pulse Rate 85 76 75 Pulse Rate [Pulse Oximeter] Pulse Rate [Right Radial] Pulse Rate [orthos tatic lying Right Radial] Pulse Rate [orthos tatic sitting Righ t Radial] Pulse Rate [orthos tatic standing Rig ht Radial] Respiratory Rate Blood Pressure 110/70 112/70 Blood Pressure [Ri ght Arm] Blood Pressure [Ri ght Upper Arm] Blood Pressure [or thostatic lying Le ft Arm] Blood Pressure [or thostatic sitting] Blood Pressure [or thostatic standing Left Arm] Pulse Oximetry 92 93 92 Oxygen Delivery Dc thod 12/26/22 16:00 12/26/22 16:02 12/26/22 16:23 Temperature Pulse Rate 77 78 81 Pulse Rate [Pulse Oximeter] Pulse Rate [Right Radial] Pulse Rate [orthos tatic lying Right Radial] Pulse Rate [orthos tatic sitting Righ t Radial] Pulse Rate [orthos tatic standing Rig ht Radial] Respiratory Rate Blood Pressure 122/73 Blood Pressure [Ri ght Arm] Blood Pressure [Ri ght Upper Arm] Blood Pressure [or thostatic lying Le ft Arm] Blood Pressure [or thostatic sitting] Blood Pressure [or thostatic standing Left Arm] Pulse Oximetry 92 91 96 Oxygen Delivery Dc thod 12/26/22 16:30 12/26/22 16:31 12/26/22 16:45 Temperature Pulse Rate 82 81 81 Pulse Rate [Pulse Oximeter] Pulse Rate [Right Radial] Pulse Rate [orthos tatic lying Right Radial] Pulse Rate [orthos tatic sitting Righ t Radial] Pulse Rate [orthos tatic standing Rig ht Radial] Respiratory Rate Blood Pressure 123/77 Blood Pressure [Ri ght Arm] Blood Pressure [Ri ght Upper Arm] Blood Pressure [or thostatic lying Le ft Arm] Blood Pressure [or thostatic sitting] Blood Pressure [or thostatic standing Left Arm] Pulse Oximetry 95 94 95 Oxygen Delivery Dc thod 12/26/22 16:46 12/26/22 19:52 12/26/22 19:52 Temperature 98.6 F 98.6 F Pulse Rate 80 Pulse Rate [Pulse Oximeter] Pulse Rate [Right Radial] 80 80 Pulse Rate [orthos tatic lying Right Radial] Pulse Rate [orthos tatic sitting Righ t Radial] Pulse Rate [orthos tatic standing Rig ht Radial] Respiratory Rate 16 16 Blood Pressure 134/80 Blood Pressure [Ri ght Arm] 132/89 132/89 Blood Pressure [Ri ght Upper Arm] Blood Pressure [or thostatic lying Le ft Arm] Blood Pressure [or thostatic sitting] Blood Pressure [or thostatic standing Left Arm] Pulse Oximetry 95 93 93 Oxygen Delivery Me thod Room Air Room Air 12/26/22 16:47 12/26/22 17:00 12/26/22 17:01 Temperature Pulse Rate 79 77 79 Pulse Rate [Pulse Oximeter] Pulse Rate [Right Radial] Pulse Rate [orthos tatic lying Right Radial] Pulse Rate [orthos tatic sitting Righ t Radial] Pulse Rate [orthos tatic standing Rig ht Radial] Respiratory Rate Blood Pressure 134/90 H Blood Pressure [Ri ght Arm] Blood Pressure [Ri ght Upper Arm] Blood Pressure [or thostatic lying Le ft Arm] Blood Pressure [or thostatic sitting] Blood Pressure [or thostatic standing Left Arm] Pulse Oximetry 95 96 96 Oxygen Delivery Me thod 12/26/22 17:15 12/26/22 17:16 12/26/22 17:30 Temperature Pulse Rate 76 77 75 Pulse Rate [Pulse Oximeter] Pulse Rate [Right Radial] Pulse Rate [orthos tatic lying Right Radial] Pulse Rate [orthos tatic sitting Righ t Radial] Pulse Rate [orthos tatic standing Rig ht Radial] Respiratory Rate Blood Pressure 124/77 Blood Pressure [Ri ght Arm] Blood Pressure [Ri ght Upper Arm] Blood Pressure [or thostatic lying Le ft Arm] Blood Pressure [or thostatic sitting] Blood Pressure [or thostatic standing Left Arm] Pulse Oximetry 95 94 93 Oxygen Delivery Me thod 12/26/22 17:31 12/26/22 17:46 12/26/22 17:47 Temperature Pulse Rate 76 81 82 Pulse Rate [Pulse Oximeter] Pulse Rate [Right Radial] Pulse Rate [orthos tatic lying Right Radial] Pulse Rate [orthos tatic sitting Righ t Radial] Pulse Rate [orthos tatic standing Rig ht Radial] Respiratory Rate Blood Pressure 130/82 121/77 Blood Pressure [Ri ght Arm] Blood Pressure [Ri ght Upper Arm] Blood Pressure [or thostatic lying Le ft Arm] Blood Pressure [or thostatic sitting] Blood Pressure [or thostatic standing Left Arm] Pulse Oximetry 95 97 97 Oxygen Delivery Me thod 12/26/22 18:00 12/26/22 18:02 12/26/22 18:15 Temperature Pulse Rate 78 79 80 Pulse Rate [Pulse Oximeter] Pulse Rate [Right Radial] Pulse Rate [orthos tatic lying Right Radial] Pulse Rate [orthos tatic sitting Righ t Radial] Pulse Rate [orthos tatic standing Rig ht Radial] Respiratory Rate Blood Pressure 125/78 Blood Pressure [Ri ght Arm] Blood Pressure [Ri ght Upper Arm] Blood Pressure [or thostatic lying Le ft Arm] Blood Pressure [or thostatic sitting] Blood Pressure [or thostatic standing Left Arm] Pulse Oximetry 94 94 94 Oxygen Delivery Me thod 12/26/22 18:17 12/26/22 18:30 12/26/22 18:31 Temperature Pulse Rate 76 78 79 Pulse Rate [Pulse Oximeter] Pulse Rate [Right Radial] Pulse Rate [orthos tatic lying Right Radial] Pulse Rate [orthos tatic sitting Righ t Radial] Pulse Rate [orthos tatic standing Rig ht Radial] Respiratory Rate Blood Pressure 130/83 123/82 Blood Pressure [Ri ght Arm] Blood Pressure [Ri ght Upper Arm] Blood Pressure [or thostatic lying Le ft Arm] Blood Pressure [or thostatic sitting] Blood Pressure [or thostatic standing Left Arm] Pulse Oximetry 95 94 94 Oxygen Delivery Dc thod 12/26/22 18:45 12/26/22 18:46 12/26/22 19:00 Temperature Pulse Rate 81 81 84 Pulse Rate [Pulse Oximeter] Pulse Rate [Right Radial] Pulse Rate [orthos tatic lying Right Radial] Pulse Rate [orthos tatic sitting Righ t Radial] Pulse Rate [orthos tatic standing Rig ht Radial] Respiratory Rate Blood Pressure 120/79 Blood Pressure [Ri ght Arm] Blood Pressure [Ri ght Upper Arm] Blood Pressure [or thostatic lying Le ft Arm] Blood Pressure [or thostatic sitting] Blood Pressure [or thostatic standing Left Arm] Pulse Oximetry 94 94 93 Oxygen Delivery Me thod 12/26/22 19:01 12/26/22 19:15 12/26/22 19:16 Temperature Pulse Rate 81 79 79 Pulse Rate [Pulse Oximeter] Pulse Rate [Right Radial] Pulse Rate [orthos tatic lying Right Radial] Pulse Rate [orthos tatic sitting Righ t Radial] Pulse Rate [orthos tatic standing Rig ht Radial] Respiratory Rate Blood Pressure 119/75 122/78 Blood Pressure [Ri ght Arm] Blood Pressure [Ri ght Upper Arm] Blood Pressure [or thostatic lying Le ft Arm] Blood Pressure [or thostatic sitting] Blood Pressure [or thostatic standing Left Arm] Pulse Oximetry 93 95 92 Oxygen Delivery Me thod 12/26/22 19:30 12/26/22 19:31 12/26/22 22:23 Temperature Pulse Rate 79 79 Pulse Rate [Pulse Oximeter] Pulse Rate [Right Radial] Pulse Rate [orthos tatic lying Right Radial] Pulse Rate [orthos tatic sitting Righ t Radial] Pulse Rate [orthos tatic standing Rig ht Radial] Respiratory Rate Blood Pressure 123/81 Blood Pressure [Ri ght Arm] Blood Pressure [Ri ght Upper Arm] Blood Pressure [or thostatic lying Le ft Arm] Blood Pressure [or thostatic sitting] Blood Pressure [or thostatic standing Left Arm] Pulse Oximetry 90 94 93 Oxygen Delivery Me thod Room Air 12/26/22 22:24 12/26/22 22:44 12/26/22 23:23 Temperature 98.6 F 98.6 F Pulse Rate 79 Pulse Rate [Pulse Oximeter] Pulse Rate [Right Radial] 80 79 Pulse Rate [orthos tatic lying Right Radial] Pulse Rate [orthos tatic sitting Righ t Radial] Pulse Rate [orthos tatic standing Rig ht Radial] Respiratory Rate 16 16 Blood Pressure Blood Pressure [Ri ght Arm] 132/89 133/82 Blood Pressure [Ri ght Upper Arm] Blood Pressure [or thostatic lying Le ft Arm] Blood Pressure [or thostatic sitting] Blood Pressure [or thostatic standing Left Arm] Pulse Oximetry 93 92 Oxygen Delivery Me thod Room Air Room Air 12/26/22 23:44 12/26/22 23:45 12/26/22 23:53 Temperature Pulse Rate 79 Pulse Rate [Pulse Oximeter] Pulse Rate [Right Radial] 79 Pulse Rate [orthos tatic lying Right Radial] Pulse Rate [orthos tatic sitting Righ t Radial] Pulse Rate [orthos tatic standing Rig ht Radial] Respiratory Rate 16 Blood Pressure Blood Pressure [Ri ght Arm] Blood Pressure [Ri ght Upper Arm] Blood Pressure [or thostatic lying Le ft Arm] Blood Pressure [or thostatic sitting] Blood Pressure [or thostatic standing Left Arm] Pulse Oximetry 92 Oxygen Delivery Me thod 12/27/22 02:47 12/27/22 02:50 12/27/22 05:40 Temperature 98.6 F 98.6 F Pulse Rate Pulse Rate [Pulse Oximeter] Pulse Rate [Right Radial] 86 Pulse Rate [orthos tatic lying Right Radial] 86 Pulse Rate [orthos tatic sitting Righ t Radial] 93 Pulse Rate [orthos tatic standing Rig ht Radial] 97 Respiratory Rate 16 Blood Pressure Blood Pressure [Ri ght Arm] 132/82 Blood Pressure [Ri ght Upper Arm] Blood Pressure [or thostatic lying Le ft Arm] 133/82 Blood Pressure [or thostatic sitting] 151/85 H Blood Pressure [or thostatic standing Left Arm] 162/97 H Pulse Oximetry 92 Oxygen Delivery Me thod Room Air Results Labs Labs: Abnormal lab results 12/26/22 12/26/22 12/26/22 Range/Units 14:02 14:02 14:02 WBC 18.86 H (4.50-11.00) K/uL Plt Count 117 L (140-440) K/uL Neut % (Auto) 80.5 H (42.0-72.0) % Lymph % (Auto) 1.5 L (20-44) % Blaine % (Auto) 16.6 H (0.0-11.0) % Neut # (Auto) 15.20 H (1.7-7.0) K/uL Lymph # (Auto) 0.30 L (0.90-2.90) K/uL Blaine # (Auto) 3.10 H (0.00-0.90) K/UL Glucose 116 H (60-115) mg/dL Lactate 2.2 H (0.5-1.9) mmol/L Total Bilirubin 6.9 H (0.1-1.5) mg/dL Direct Bilirubin 2.5 H (0.0-0.5) mg/dL GGT 370 H (8-55) U/L AST 264 H (12-35) U/L ALT 135 H (4-50) U/L Ammonia (13.1-30.0) umol/L C-Reactive Protein 2.3 H (0.5-1.0) mg/dL TSH (0.270-4.20) uIU/mL Urine Blood (Negative) Urine Bilirubin (Negative) Urine Urobilinogen (0.2-1.0) Urine RBC (0-2) Urine Bacteria (None) Ur Oxycodone Screen (Negative) Acetaminophen < 10.0 L (10.0-30.0) ug/mL Ethyl Alcohol < 0.01 L (0.01-0.03) % 12/26/22 12/26/22 12/26/22 Range/Units 14:02 15:26 17:45 WBC (4.50-11.00) K/uL Plt Count (140-440) K/uL Neut % (Auto) (42.0-72.0) % Lymph % (Auto) (20-44) % Blaine % (Auto) (0.0-11.0) % Neut # (Auto) (1.7-7.0) K/uL Lymph # (Auto) (0.90-2.90) K/uL Blaine # (Auto) (0.00-0.90) K/UL Glucose (60-115) mg/dL Lactate (0.5-1.9) mmol/L Total Bilirubin (0.1-1.5) mg/dL Direct Bilirubin (0.0-0.5) mg/dL GGT (8-55) U/L AST (12-35) U/L ALT (4-50) U/L Ammonia < 9.0 L (13.1-30.0) umol/L C-Reactive Protein (0.5-1.0) mg/dL TSH 4.570 H (0.270-4.20) uIU/mL Urine Blood 2+ A (Negative) Urine Bilirubin 2+ A (Negative) Urine Urobilinogen 2.0 A (0.2-1.0) Urine RBC 5-10 A (0-2) Urine Bacteria Few A (None) Ur Oxycodone Screen (Negative) Acetaminophen (10.0-30.0) ug/mL Ethyl Alcohol (0.01-0.03) % 12/26/22 Range/Units 17:45 WBC (4.50-11.00) K/uL Plt Count (140-440) K/uL Neut % (Auto) (42.0-72.0) % Lymph % (Auto) (20-44) % Blaine % (Auto) (0.0-11.0) % Neut # (Auto) (1.7-7.0) K/uL Lymph # (Auto) (0.90-2.90) K/uL Blaine # (Auto) (0.00-0.90) K/UL Glucose (60-115) mg/dL Lactate (0.5-1.9) mmol/L Total Bilirubin (0.1-1.5) mg/dL Direct Bilirubin (0.0-0.5) mg/dL GGT (8-55) U/L AST (12-35) U/L ALT (4-50) U/L Ammonia (13.1-30.0) umol/L C-Reactive Protein (0.5-1.0) mg/dL TSH (0.270-4.20) uIU/mL Urine Blood (Negative) Urine Bilirubin (Negative) Urine Urobilinogen (0.2-1.0) Urine RBC (0-2) Urine Bacteria (None) Ur Oxycodone Screen POSITIVE A* (Negative) Acetaminophen (10.0-30.0) ug/mL Ethyl Alcohol (0.01-0.03) % Diabetes panel 12/26/22 12/26/22 Range/Units 14:02 14:02 Sodium 137 (135-149) mmol/L Potassium 3.8 (3.6-5.1) mmol/L Chloride 102 (96-114) mmol/L Carbon Dioxide 30 (20-32) mmol/L BUN 23 (7-30) mg/dL Creatinine 1.4 (0.5-1.5) mg/dL Glucose 116 H (60-115) mg/dL Hemoglobin A1c 5.29 (0-5.6) % Calcium 8.9 (8.4-10.6) mg/dL AST 264 H (12-35) U/L ALT 135 H (4-50) U/L Alkaline Phosphatase 83 (40-150) U/L Total Protein 7.7 (6.0-8.3) g/dL Albumin 4.1 (3.3-5.0) g/dL Thyroid panel 12/26/22 Range/Units 14:02 TSH 4.570 H (0.270-4.20) uIU/mL Calcium panel 12/26/22 Range/Units 14:02 Calcium 8.9 (8.4-10.6) mg/dL Albumin 4.1 (3.3-5.0) g/dL Pituitary panel 12/26/22 12/26/22 Range/Units 14:02 14:02 Sodium 137 (135-149) mmol/L Potassium 3.8 (3.6-5.1) mmol/L Chloride 102 (96-114) mmol/L Carbon Dioxide 30 (20-32) mmol/L BUN 23 (7-30) mg/dL Creatinine 1.4 (0.5-1.5) mg/dL Glucose 116 H (60-115) mg/dL Calcium 8.9 (8.4-10.6) mg/dL TSH 4.570 H (0.270-4.20) uIU/mL Adrenal panel 12/26/22 Range/Units 14:02 Sodium 137 (135-149) mmol/L Potassium 3.8 (3.6-5.1) mmol/L Chloride 102 (96-114) mmol/L Carbon Dioxide 30 (20-32) mmol/L BUN 23 (7-30) mg/dL Creatinine 1.4 (0.5-1.5) mg/dL Glucose 116 H (60-115) mg/dL Calcium 8.9 (8.4-10.6) mg/dL Total Bilirubin 6.9 H (0.1-1.5) mg/dL AST 264 H (12-35) U/L ALT 135 H (4-50) U/L Alkaline Phosphatase 83 (40-150) U/L Total Protein 7.7 (6.0-8.3) g/dL Albumin 4.1 (3.3-5.0) g/dL All other labs normal. Assessment and Plan Assessment and plan (1) Cholelithiasis with choledocholithiasis: Problem comment: -Zosyn q.6. There are no blood cultures pending. No abdominal pain upon arrival. Will give a fluid bolus maintenance fluids, keeping him on just sips chips. Repeat his bilirubin in the morning. Consider an MRCP if available this weekend. Try again to get an ERCP arranged. General surgery aware. Status: Acute Plan 72-year-old male admitted to the hospital with cholelithiasis and possible choledocholithiasis. Patient was not able to transfer to the tertiary center for ERCP. Patient is currently NPO and to do with IV antibiotics. I would recommend trending his labs to see if his bilirubin is improving. It is possible that he has passed a stone since his alkaline phosphatase is normal and he has no abdominal pain today. Patient does take Xarelto and it is unclear from the patient himself when the last dose was. Will try to verify with the when he took Xarelto for possible surgical planning. If no surgery is planned, it would be reasonable to give patient clears.
[2022-12-27 07:04] LABS: HCO3 VBG 27 mmol/L (21-28); Ionized Calcium* 1.07 mmol/L (1.11-1.30); PCO2 VBG 41 mmHG (40-50); PO2 VBG 68.3 mmHG (25-47); pH VBG 7.428 (7.32-7.43)
[2022-12-27 07:15] LABS: INR 1.34 (0.91-1.10); Prothrombin Time 17.3 Seconds
[2022-12-27 07:20] LABS: Basophils Absolute Auto 0.06 K/uL (0.00-0.30); Basophils Percent Auto 0.6 % (0.0-3.0); Eosinophils Absolute Auto 0.02 K/uL (0.00-0.50); Eosinophils Percent Auto 0.2 % (0.0-7.0); Hematocrit 39.9 % (37.0-53.0); Hemoglobin* 13.6 gm/dL (13.5-17.5); Immature Granulocytes Abs Auto 0.01 K/uL (0.00-0.30); Immature Granulocytes Pct Auto 0.1 %; Lymphocytes Percent Auto 3.8 % (20-44); Mean Corpuscular HGB Conc 34 gm/dL (32-36); Mean Corpuscular Hemoglobin 28 pg (26-34); Mean Corpuscular Volume 82 fL (80-100); Monocytes Percent Auto 17.3 % (0.0-11.0); Platelet Count* 108 K/uL (140-440); Red Blood Count 4.84 m/uL (4.30-5.90); White Blood Count* 9.33 K/uL (4.50-11.00)
[2022-12-27 07:32] LABS: Slide Review Reflex No
[2022-12-27 07:34] LABS: Albumin* 3.4 g/dL (3.3-5.0); Chloride* 106 mmol/L (96-114); Sodium* 137 mmol/L (135-149)
[2022-12-27 07:37] LABS: Alkaline Phosphatase* 72 U/L (40-150); Aspartate Amino Transferase* 207 U/L (12-35); Bilirubin Total* 8.8 mg/dL (0.1-1.5); Carbon Dioxide* 26 mmol/L (20-32); Creatinine* 1.1 mg/dL (0.5-1.5); Est. Creatinine Clearance* 70.62; Estimated Glomerular Filt Rate 72 ml/min; Lipase* 60 U/L (23-300); Total Protein* 6.7 g/dL (6.0-8.3)
[2022-12-27 07:38] LABS: Alanine Aminotransferase* 145 U/L (4-50); Blood Urea Nitrogen* 24 mg/dL (7-30); Gamma Glutamyl Transpeptidase* 307 U/L (8-55); Glucose* 104 mg/dL (60-115); Magnesium* 1.7 mg/dL (1.5-2.6)
[2022-12-27 07:40] LABS: C Reactive Protein* 6.7 mg/dL (0.5-1.0)
[2022-12-27] MEDS: lisinopriL 20 MG TABLET 40 MG PO (09:06)
[2022-12-27] MEDS: carvediloL 25 MG TABLET 50 MG PO (09:07)
[2022-12-27] MEDS: GABAPENTIN 300 MG CAPSULE PO (09:07)
--- NOTE | 2022-12-27 12:11 | P.IMPN_ITS ---
Progress Note: A&P Assessment and plan (1) Cholelithiasis with choledocholithiasis: Problem details: -Zosyn q.6. continue IVF/antibiotics/MRCP today; per report surgery aware of patient, attempts have made to transfer to [facility] for anticipated ERCP Status: Acute Assessment and Plan: Follow LFTs (2) Hyperbilirubinemia: Problem details: As above. Status: Acute (3) History of prostate cancer: Status: Acute (4) GERD (gastroesophageal reflux disease): Status: Acute Assessment and Plan: IV PPI (5) BPH w urinary obs/LUTS: Status: Acute (6) History of pulmonary embolus (PE): Problem details: heparin subQ Status: Acute (7) Personal history of DVT (deep vein thrombosis): Problem details: Will hold his Xarelto, covering him with subq heaprin in case he needs a surgical procedure likely ERCP or E ventrally a lap choly with interoperative cholangiogram. Status: Acute (8) Chronic pain: Problem details: On narcotics chronically. 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 Followed by sports medicine at the [facility] and gets injections. Status: Acute (9) Hypertension: Problem details: 5 med regimen-carvedilol, lisinopril, spironolactone, hydrochlorothiazide, amlodipine. Follows with Cardiology. prn hydralazine for SBP>180. continue BB Status: Acute (10) Thrombocytopenia: Problem details: plt trending down likley multifactorial given acute infection; +IVF dilutional Status: Acute Assessment and Plan: follow CBC Plan Plan for today -MRCP -attempt to transfer to [address] [place] [address] -Follow LFTs -continue zosyn -IVF change to D5NS; q6h POC gluc -dc lisinopril -prn IV hydralazine -will need PT, and OT prior to dc and OT cognitive evaluation -anticipated discharge to [facility] once available -family communication discussed with ; some of cognitive issues have been chronic Code-full DVT [id number] Subjective Date Seen: 12/27/22 Interval history: patient new to me he is able to tell me his name does not know he is in hospital does not know time Exam Narrative: Exam Narrative: Gen: no acute di stress HEENT: NCAT EOMI mmm Neck: [place] pple CV: RRR elan l s1 s2 Lungs: CTA B Abd: Soft,nt, nd Neuro: Alert, but not oriented,susp ect underlying dem entia Psych: appro priate affect MSK: age appropriate m uscle mass Skin; W arm, dry no rash o n face; scleral ic terus Const: Vital Signs, click to edit/add: Vital Signs - 24 hr 12/26/22 13:55 12/26/22 13:55 12/26/22 14:02 Temperature Pulse Rate 88 Pulse Rate [Pulse Oximeter] 93 Pulse Rate [Right Radial] Pulse Rate [orthos tatic lying Right Radial] Pulse Rate [orthos tatic sitting Righ t Radial] Pulse Rate [orthos tatic standing Rig ht Radial] Respiratory Rate Blood Pressure 111/71 Blood Pressure [Ri ght Arm] Blood Pressure [Ri ght Upper Arm] 114/81 Blood Pressure [or thostatic lying Le ft Arm] Blood Pressure [or thostatic sitting] Blood Pressure [or thostatic standing Left Arm] Pulse Oximetry 95 96 91 Oxygen Delivery Mn thod Room Air 12/26/22 14:03 12/26/22 14:26 12/26/22 14:30 Temperature Pulse Rate 87 90 89 Pulse Rate [Pulse Oximeter] Pulse Rate [Right Radial] Pulse Rate [orthos tatic lying Right Radial] Pulse Rate [orthos tatic sitting Righ t Radial] Pulse Rate [orthos tatic standing Rig ht Radial] Respiratory Rate Blood Pressure Blood Pressure [Ri ght Arm] Blood Pressure [Ri ght Upper Arm] Blood Pressure [or thostatic lying Le ft Arm] Blood Pressure [or thostatic sitting] Blood Pressure [or thostatic standing Left Arm] Pulse Oximetry 94 90 90 Oxygen Delivery Me thod 12/26/22 14:31 12/26/22 14:32 12/26/22 14:45 Temperature Pulse Rate 86 87 84 Pulse Rate [Pulse Oximeter] Pulse Rate [Right Radial] Pulse Rate [orthos tatic lying Right Radial] Pulse Rate [orthos tatic sitting Righ t Radial] Pulse Rate [orthos tatic standing Rig ht Radial] Respiratory Rate Blood Pressure 110/69 Blood Pressure [Ri ght Arm] Blood Pressure [Ri ght Upper Arm] Blood Pressure [or thostatic lying Le ft Arm] Blood Pressure [or thostatic sitting] Blood Pressure [or thostatic standing Left Arm] Pulse Oximetry 89 88 90 Oxygen Delivery Me thod 12/26/22 14:46 12/26/22 15:00 12/26/22 15:02 Temperature Pulse Rate 83 82 81 Pulse Rate [Pulse Oximeter] Pulse Rate [Right Radial] Pulse Rate [orthos tatic lying Right Radial] Pulse Rate [orthos tatic sitting Righ t Radial] Pulse Rate [orthos tatic standing Rig ht Radial] Respiratory Rate Blood Pressure 116/72 110/71 Blood Pressure [Ri ght Arm] Blood Pressure [Ri ght Upper Arm] Blood Pressure [or thostatic lying Le ft Arm] Blood Pressure [or thostatic sitting] Blood Pressure [or thostatic standing Left Arm] Pulse Oximetry 90 89 [facility]15 12/26/22 15:17 12/26/22 15:30 Temperature Pulse Rate 80 77 82 Pulse Rate [Pulse Oximeter] Pulse Rate [Right Radial] Pulse Rate [orthos tatic lying Right Radial] Pulse Rate [orthos tatic sitting Righ t Radial] Pulse Rate [orthos tatic standing Rig ht Radial] Respiratory Rate Blood Pressure 109/68 Blood Pressure [Ri ght Arm] Blood Pressure [Ri ght Upper Arm] Blood Pressure [or thostatic lying Le ft Arm] Blood Pressure [or thostatic sitting] Blood Pressure [or thostatic standing Left Arm] Pulse Oximetry 94 93 90 [facility] 15:32 12/26/22 15:45 12/26/22 15:46 Temperature Pulse Rate 85 76 75 Pulse Rate [Pulse Oximeter] Pulse Rate [Right Radial] Pulse Rate [orthos tatic lying Right Radial] Pulse Rate [orthos tatic sitting Righ t Radial] Pulse Rate [orthos tatic standing Rig ht Radial] Respiratory Rate Blood Pressure 110/70 112/70 Blood Pressure [Ri ght Arm] Blood Pressure [Ri ght Upper Arm] Blood Pressure [or thostatic lying Le ft Arm] Blood Pressure [or thostatic sitting] Blood Pressure [or thostatic standing Left Arm] Pulse Oximetry 92 93 92 [facility] 16:00 12/26/22 16:02 12/26/22 16:23 Temperature Pulse Rate 77 78 81 Pulse Rate [Pulse Oximeter] Pulse Rate [Right Radial] Pulse Rate [orthos tatic lying Right Radial] Pulse Rate [orthos tatic sitting Righ t Radial] Pulse Rate [orthos tatic standing Rig ht Radial] Respiratory Rate Blood Pressure 122/73 Blood Pressure [Ri ght Arm] Blood Pressure [Ri ght Upper Arm] Blood Pressure [or thostatic lying Le ft Arm] Blood Pressure [or thostatic sitting] Blood Pressure [or thostatic standing Left Arm] Pulse Oximetry 92 91 96 Oxygen Delivery Me thod 12/26/22 16:30 12/26/22 16:31 12/26/22 16:45 Temperature Pulse Rate 82 81 81 Pulse Rate [Pulse Oximeter] Pulse Rate [Right Radial] Pulse Rate [orthos tatic lying Right Radial] Pulse Rate [orthos tatic sitting Righ t Radial] Pulse Rate [orthos tatic standing Rig ht Radial] Respiratory Rate Blood Pressure 123/77 Blood Pressure [Ri ght Arm] Blood Pressure [Ri ght Upper Arm] Blood Pressure [or thostatic lying Le ft Arm] Blood Pressure [or thostatic sitting] Blood Pressure [or thostatic standing Left Arm] Pulse Oximetry 95 94 95 Oxygen Delivery Me thod 12/26/22 16:46 12/26/22 19:52 12/26/22 19:52 Temperature 98.6 F 98.6 F Pulse Rate 80 Pulse Rate [Pulse Oximeter] Pulse Rate [Right Radial] 80 80 Pulse Rate [orthos tatic lying Right Radial] Pulse Rate [orthos tatic sitting Righ t Radial] Pulse Rate [orthos tatic standing Rig ht Radial] Respiratory Rate 16 16 Blood Pressure 134/80 Blood Pressure [Ri ght Arm] 132/89 132/89 Blood Pressure [Ri ght Upper Arm] Blood Pressure [or thostatic lying Le ft Arm] Blood Pressure [or thostatic sitting] Blood Pressure [or thostatic standing Left Arm] Pulse Oximetry 95 93 93 Oxygen Delivery Me thod Room Air Room Air 12/26/22 16:47 12/26/22 17:00 12/26/22 17:01 Temperature Pulse Rate 79 77 79 Pulse Rate [Pulse Oximeter] Pulse Rate [Right Radial] Pulse Rate [orthos tatic lying Right Radial] Pulse Rate [orthos tatic sitting Righ t Radial] Pulse Rate [orthos tatic standing Rig ht Radial] Respiratory Rate Blood Pressure 134/90 H Blood Pressure [Ri ght Arm] Blood Pressure [Ri ght Upper Arm] Blood Pressure [or thostatic lying Le ft Arm] Blood Pressure [or thostatic sitting] Blood Pressure [or thostatic standing Left Arm] Pulse Oximetry 95 96 96 Oxygen Delivery Me thod 12/26/22 17:15 12/26/22 17:16 12/26/22 17:30 Temperature Pulse Rate 76 77 75 Pulse Rate [Pulse Oximeter] Pulse Rate [Right Radial] Pulse Rate [orthos tatic lying Right Radial] Pulse Rate [orthos tatic sitting Righ t Radial] Pulse Rate [orthos tatic standing Rig ht Radial] Respiratory Rate Blood Pressure 124/77 Blood Pressure [Ri ght Arm] Blood Pressure [Ri ght Upper Arm] Blood Pressure [or thostatic lying Le ft Arm] Blood Pressure [or thostatic sitting] Blood Pressure [or thostatic standing Left Arm] Pulse Oximetry 95 94 93 Oxygen Delivery Me thod 12/26/22 17:31 12/26/22 17:46 12/26/22 17:47 Temperature Pulse Rate 76 81 82 Pulse Rate [Pulse Oximeter] Pulse Rate [Right Radial] Pulse Rate [orthos tatic lying Right Radial] Pulse Rate [orthos tatic sitting Righ t Radial] Pulse Rate [orthos tatic standing Rig ht Radial] Respiratory Rate Blood Pressure 130/82 121/77 Blood Pressure [Ri ght Arm] Blood Pressure [Ri ght Upper Arm] Blood Pressure [or thostatic lying Le ft Arm] Blood Pressure [or thostatic sitting] Blood Pressure [or thostatic standing Left Arm] Pulse Oximetry 95 97 97 Oxygen Delivery Me thod 12/26/22 18:00 12/26/22 18:02 12/26/22 18:15 Temperature Pulse Rate 78 79 80 Pulse Rate [Pulse Oximeter] Pulse Rate [Right Radial] Pulse Rate [orthos tatic lying Right Radial] Pulse Rate [orthos tatic sitting Righ t Radial] Pulse Rate [orthos tatic standing Rig ht Radial] Respiratory Rate Blood Pressure 125/78 Blood Pressure [Ri ght Arm] Blood Pressure [Ri ght Upper Arm] Blood Pressure [or thostatic lying Le ft Arm] Blood Pressure [or thostatic sitting] Blood Pressure [or thostatic standing Left Arm] Pulse Oximetry 94 94 94 Oxygen Delivery Me thod 12/26/22 18:17 12/26/22 18:30 12/26/22 18:31 Temperature Pulse Rate 76 78 79 Pulse Rate [Pulse Oximeter] Pulse Rate [Right Radial] Pulse Rate [orthos tatic lying Right Radial] Pulse Rate [orthos tatic sitting Righ t Radial] Pulse Rate [orthos tatic standing Rig ht Radial] Respiratory Rate Blood Pressure 130/83 123/82 Blood Pressure [Ri ght Arm] Blood Pressure [Ri ght Upper Arm] Blood Pressure [or thostatic lying Le ft Arm] Blood Pressure [or thostatic sitting] Blood Pressure [or thostatic standing Left Arm] Pulse Oximetry 95 94 94 Oxygen Delivery Me thod 12/26/22 18:45 12/26/22 18:46 12/26/22 19:00 Temperature Pulse Rate 81 81 84 Pulse Rate [Pulse Oximeter] Pulse Rate [Right Radial] Pulse Rate [orthos tatic lying Right Radial] Pulse Rate [orthos tatic sitting Righ t Radial] Pulse Rate [orthos tatic standing Rig ht Radial] Respiratory Rate Blood Pressure 120/79 Blood Pressure [Ri ght Arm] Blood Pressure [Ri ght Upper Arm] Blood Pressure [or thostatic lying Le ft Arm] Blood Pressure [or thostatic sitting] Blood Pressure [or thostatic standing Left Arm] Pulse Oximetry 94 94 93 Oxygen Delivery Me thod 12/26/22 19:01 12/26/22 19:15 12/26/22 19:16 Temperature Pulse Rate 81 79 79 Pulse Rate [Pulse Oximeter] Pulse Rate [Right Radial] Pulse Rate [orthos tatic lying Right Radial] Pulse Rate [orthos tatic sitting Righ t Radial] Pulse Rate [orthos tatic standing Rig ht Radial] Respiratory Rate Blood Pressure 119/75 122/78 Blood Pressure [Ri ght Arm] Blood Pressure [Ri ght Upper Arm] Blood Pressure [or thostatic lying Le ft Arm] Blood Pressure [or thostatic sitting] Blood Pressure [or thostatic standing Left Arm] Pulse Oximetry 93 95 92 Oxygen Delivery Me thod 12/26/22 19:30 12/26/22 19:31 12/26/22 22:23 Temperature Pulse Rate 79 79 Pulse Rate [Pulse Oximeter] Pulse Rate [Right Radial] Pulse Rate [orthos tatic lying Right Radial] Pulse Rate [orthos tatic sitting Righ t Radial] Pulse Rate [orthos tatic standing Rig ht Radial] Respiratory Rate Blood Pressure 123/81 Blood Pressure [Ri ght Arm] Blood Pressure [Ri ght Upper Arm] Blood Pressure [or thostatic lying Le ft Arm] Blood Pressure [or thostatic sitting] Blood Pressure [or thostatic standing Left Arm] Pulse Oximetry 90 94 93 Oxygen Delivery Me thod Room Air 12/26/22 22:24 12/26/22 22:44 12/26/22 23:23 Temperature 98.6 F 98.6 F Pulse Rate 79 Pulse Rate [Pulse Oximeter] Pulse Rate [Right Radial] 80 79 Pulse Rate [orthos tatic lying Right Radial] Pulse Rate [orthos tatic sitting Righ t Radial] Pulse Rate [orthos tatic standing Rig ht Radial] Respiratory Rate 16 16 Blood Pressure Blood Pressure [Ri ght Arm] 132/89 133/82 Blood Pressure [Ri ght Upper Arm] Blood Pressure [or thostatic lying Le ft Arm] Blood Pressure [or thostatic sitting] Blood Pressure [or thostatic standing Left Arm] Pulse Oximetry 93 92 Oxygen Delivery Me thod Room Air Room Air 12/26/22 23:44 12/26/22 23:45 12/26/22 23:53 Temperature Pulse Rate 79 Pulse Rate [Pulse Oximeter] Pulse Rate [Right Radial] 79 Pulse Rate [orthos tatic lying Right Radial] Pulse Rate [orthos tatic sitting Righ t Radial] Pulse Rate [orthos tatic standing Rig ht Radial] Respiratory Rate 16 Blood Pressure Blood Pressure [Ri ght Arm] Blood Pressure [Ri ght Upper Arm] Blood Pressure [or thostatic lying Le ft Arm] Blood Pressure [or thostatic sitting] Blood Pressure [or thostatic standing Left Arm] Pulse Oximetry 92 Oxygen Delivery Me thod 12/27/22 02:47 12/27/22 02:50 12/27/22 05:40 Temperature 98.6 F 98.6 F Pulse Rate Pulse Rate [Pulse Oximeter] Pulse Rate [Right Radial] 86 Pulse Rate [orthos tatic lying Right Radial] 86 Pulse Rate [orthos tatic sitting Righ t Radial] 93 Pulse Rate [orthos tatic standing Rig ht Radial] 97 Respiratory Rate 16 Blood Pressure Blood Pressure [Ri ght Arm] 132/82 Blood Pressure [Ri ght Upper Arm] Blood Pressure [or thostatic lying Le ft Arm] 133/82 Blood Pressure [or thostatic sitting] 151/85 H Blood Pressure [or thostatic standing Left Arm] 162/97 H Pulse Oximetry 92 Oxygen Delivery Me thod Room Air 12/27/22 07:00 12/27/22 07:00 12/27/22 09:50 Temperature 98.3 F Pulse Rate 66 Pulse Rate [Pulse Oximeter] Pulse Rate [Right Radial] 73 Pulse Rate [orthos tatic lying Right Radial] Pulse Rate [orthos tatic sitting Righ t Radial] Pulse Rate [orthos tatic standing Rig ht Radial] Respiratory Rate 16 Blood Pressure Blood Pressure [Ri ght Arm] 117/70 Blood Pressure [Ri ght Upper Arm] Blood Pressure [or thostatic lying Le ft Arm] Blood Pressure [or thostatic sitting] Blood Pressure [or thostatic standing Left Arm] Pulse Oximetry 92 92 Oxygen Delivery Me thod Room Air 12/27/22 11:00 Temperature 98.4 F Pulse Rate Pulse Rate [Pulse Oximeter] Pulse Rate [Right Radial] 64 Pulse Rate [orthos tatic lying Right Radial] Pulse Rate [orthos tatic sitting Righ t Radial] Pulse Rate [orthos tatic standing Rig ht Radial] Respiratory Rate 16 Blood Pressure Blood Pressure [Ri ght Arm] 121/68 Blood Pressure [Ri ght Upper Arm] Blood Pressure [or thostatic lying Le ft Arm] Blood Pressure [or thostatic sitting] Blood Pressure [or thostatic standing Left Arm] Pulse Oximetry 95 Oxygen Delivery Me thod Room Air Labs Labs: Laboratory Results - last 24 hr 12/26/22 12/26/22 12/26/22 14:02 14:02 14:02 WBC 18.86 H RBC 5.39 Hgb 14.9 Hct 44.1 MCV 82 MCH 28 MCHC 34 RDW Coeff of Estella 12.8 Plt Count 117 L Neut % (Auto) 80.5 H Lymph % (Auto) 1.5 L [place] % (Auto) 16.6 H Eos % (Auto) 0.1 Baso % (Auto) 0.2 Neut # (Auto) 15.20 H Lymph # (Auto) 0.30 L [place] # (Auto) 3.10 H Eos # (Auto) 0.00 Baso # (Auto) 0.00 Diff Slide Review Acceptable Review ESR 5 INR VBG pH VBG pCO2 VBG pO2 VBG HCO3 Sodium Potassium Chloride Carbon Dioxide BUN Creatinine Estimated Creat Clear Estimated GFR Glucose Hemoglobin A1c Lactate Calcium Ionized Calcium Melisa Magnesium Total Bilirubin Direct Bilirubin GGT AST ALT Alkaline Phosphatase Ammonia Troponin I C-Reactive Protein Total Protein Albumin Lipase Procalcitonin TSH Free T4 Urine Color Urine Appearance Urine pH Ur Specific [place] Urine Protein Urine Glucose (UA) Urine Ketones Urine Blood Urine Nitrite Urine Bilirubin Urine Urobilinogen Ur Leukocyte Esterase Urine RBC Urine WBC Ur Squamous Epith Cells Urine Bacteria Urine Opiates Screen Ur Oxycodone Screen Urine Methadone Screen Ur Propoxyphene Screen Acetaminophen Ur Barbiturates Screen U Tricyclic Antidepress Ur Phencyclidine Scrn Ur Amphetamines Screen U Methamphetamines Scrn U Benzodiazepines Scrn Urine Cocaine Screen U Marijuana (THC) Screen Ur Drug Screen Comment Ethyl Alcohol SARS-CoV-2 (PCR) Monoscreen Negative Influenza Type A (PCR) Influenza Type B (PCR) POC Troponin I 12/26/22 12/26/22 12/26/22 14:02 14:02 14:02 WBC RBC Hgb Hct MCV MCH MCHC RDW Coeff of Estella Plt Count Neut % (Auto) Lymph % (Auto) [place] % (Auto) Eos % (Auto) Baso % (Auto) Neut # (Auto) Lymph # (Auto) [place] # (Auto) Eos # (Auto) Baso # (Auto) Diff Slide Review ESR INR VBG pH VBG pCO2 VBG pO2 VBG HCO3 Sodium 137 Potassium 3.8 Chloride 102 Carbon Dioxide 30 BUN 23 Creatinine 1.4 Estimated Creat Clear 57.08 Estimated GFR 54 Glucose 116 H Hemoglobin A1c Lactate 2.2 H Calcium 8.9 Ionized Calcium Melisa Magnesium Total Bilirubin 6.9 H Direct Bilirubin 2.5 H GGT 370 H AST 264 H ALT 135 H Alkaline Phosphatase 83 Ammonia Troponin I 0.01 C-Reactive Protein 2.3 H Total Protein 7.7 Albumin 4.1 Lipase 94 Procalcitonin TSH 4.570 H Free T4 1.13 Urine Color Urine Appearance Urine pH Ur Specific [place] Urine Protein Urine Glucose (UA) Urine Ketones Urine Blood Urine Nitrite Urine Bilirubin Urine Urobilinogen Ur Leukocyte Esterase Urine RBC Urine WBC Ur Squamous Epith Cells Urine Bacteria Urine Opiates Screen Ur Oxycodone Screen Urine Methadone Screen Ur Propoxyphene Screen Acetaminophen < 10.0 L Ur Barbiturates Screen U Tricyclic Antidepress Ur Phencyclidine Scrn Ur Amphetamines Screen U Methamphetamines Scrn U Benzodiazepines Scrn Urine Cocaine Screen U Marijuana (THC) Screen Ur Drug Screen Comment Ethyl Alcohol < 0.01 L SARS-CoV-2 (PCR) Monoscreen Influenza Type A (PCR) Influenza Type B (PCR) POC Troponin I 12/26/22 12/26/22 12/26/22 14:02 14:02 14:02 WBC RBC Hgb Hct MCV MCH MCHC RDW Coeff of Estella Plt Count Neut % (Auto) Lymph % (Auto) [place] % (Auto) Eos % (Auto) Baso % (Auto) Neut # (Auto) Lymph # (Auto) [place] # (Auto) Eos # (Auto) Baso # (Auto) Diff Slide Review ESR INR VBG pH VBG pCO2 VBG pO2 VBG HCO3 Sodium Potassium Chloride Carbon Dioxide BUN Creatinine Estimated Creat Clear Estimated GFR Glucose Hemoglobin A1c 5.29 Lactate Calcium Ionized Calcium Melisa Magnesium Total Bilirubin Direct Bilirubin GGT AST ALT Alkaline Phosphatase Ammonia Troponin I C-Reactive Protein Total Protein Albumin Lipase Procalcitonin TSH Free T4 Urine Color Urine Appearance Urine pH Ur Specific [place] Urine Protein Urine Glucose (UA) Urine Ketones Urine Blood Urine Nitrite Urine Bilirubin Urine Urobilinogen Ur Leukocyte Esterase Urine RBC Urine WBC Ur Squamous Epith Cells Urine Bacteria Urine Opiates Screen Ur Oxycodone Screen Urine Methadone Screen Ur Propoxyphene Screen Acetaminophen Ur Barbiturates Screen U Tricyclic Antidepress Ur Phencyclidine Scrn Ur Amphetamines Screen U Methamphetamines Scrn U Benzodiazepines Scrn Urine Cocaine Screen U Marijuana (THC) Screen Ur Drug Screen Comment Ethyl Alcohol SARS-CoV-2 (PCR) Negative SARS-CoV-2 Monoscreen Influenza Type A (PCR) Negative PCR FLU A Influenza Type B (PCR) Negative PCR FLU B POC Troponin I Cancelled 12/26/22 12/26/22 12/26/22 15:26 16:44 17:45 WBC RBC Hgb Hct MCV MCH MCHC RDW Coeff of Estella Plt Count Neut % (Auto) Lymph % (Auto) [place] % (Auto) Eos % (Auto) Baso % (Auto) Neut # (Auto) Lymph # (Auto) [place] # (Auto) Eos # (Auto) Baso # (Auto) Diff Slide Review ESR INR VBG pH VBG pCO2 VBG pO2 VBG HCO3 Sodium Potassium Chloride Carbon Dioxide BUN Creatinine Estimated Creat Clear Estimated GFR Glucose Hemoglobin A1c Lactate 1.6 Calcium Ionized Calcium Melisa Magnesium Total Bilirubin Direct Bilirubin GGT AST ALT Alkaline Phosphatase Ammonia < 9.0 L Troponin I C-Reactive Protein Total Protein Albumin Lipase Procalcitonin TSH Free T4 Urine Color Yellow Urine Appearance Clear Urine pH 7.0 Ur Specific [place] 1.010 Urine Protein Negative Urine Glucose (UA) Negative Urine Ketones Negative Urine Blood 2+ A Urine Nitrite Negative Urine Bilirubin 2+ A Urine Urobilinogen 2.0 A Ur Leukocyte Esterase Negative Urine RBC 5-10 A Urine WBC 0-2 Ur Squamous Epith Cells Few Urine Bacteria Few A Urine Opiates Screen Ur Oxycodone Screen Urine Methadone Screen Ur Propoxyphene Screen Acetaminophen Ur Barbiturates Screen U Tricyclic Antidepress Ur Phencyclidine Scrn Ur Amphetamines Screen U Methamphetamines Scrn U Benzodiazepines Scrn Urine Cocaine Screen U Marijuana (THC) Screen Ur Drug Screen Comment Ethyl Alcohol SARS-CoV-2 (PCR) Monoscreen Influenza Type A (PCR) Influenza Type B (PCR) POC Troponin I 12/26/22 12/27/22 12/27/22 17:45 05:29 05:29 WBC 9.33 RBC 4.84 Hgb 13.6 Hct 39.9 MCV 82 MCH 28 MCHC 34 RDW Coeff of Estella 13.0 Plt Count 108 L Neut % (Auto) 78.0 H Lymph % (Auto) 3.8 L [place] % (Auto) 17.3 H Eos % (Auto) 0.2 Baso % (Auto) 0.6 Neut # (Auto) 7.30 H Lymph # (Auto) 0.40 L [place] # (Auto) 1.60 H Eos # (Auto) 0.02 Baso # (Auto) 0.06 Diff Slide Review ESR INR 1.34 H VBG pH VBG pCO2 VBG pO2 VBG HCO3 Sodium Potassium Chloride Carbon Dioxide BUN Creatinine Estimated Creat Clear Estimated GFR Glucose Hemoglobin A1c Lactate Calcium Ionized Calcium Melisa Magnesium Total Bilirubin Direct Bilirubin GGT AST ALT Alkaline Phosphatase Ammonia Troponin I C-Reactive Protein Total Protein Albumin Lipase Procalcitonin TSH Free T4 Urine Color Urine Appearance Urine pH Ur Specific [place] Urine Protein Urine Glucose (UA) Urine Ketones Urine Blood Urine Nitrite Urine Bilirubin Urine Urobilinogen Ur Leukocyte Esterase Urine RBC Urine WBC Ur Squamous Epith Cells Urine Bacteria Urine Opiates Screen Negative Ur Oxycodone Screen POSITIVE A* Urine Methadone Screen Negative Ur Propoxyphene Screen Negative Acetaminophen Ur Barbiturates Screen Negative U Tricyclic Antidepress Negative Ur Phencyclidine Scrn Negative Ur Amphetamines Screen Negative U Methamphetamines Scrn Negative U Benzodiazepines Scrn Negative Urine Cocaine Screen Negative U Marijuana (THC) Screen Negative Ur Drug Screen Comment See Note Ethyl Alcohol SARS-CoV-2 (PCR) Monoscreen Influenza Type A (PCR) Influenza Type B (PCR) POC Troponin I 12/27/22 12/27/22 05:29 05:29 WBC RBC Hgb Hct MCV MCH MCHC RDW Coeff of Estella Plt Count Neut % (Auto) Lymph % (Auto) [place] % (Auto) Eos % (Auto) Baso % (Auto) Neut # (Auto) Lymph # (Auto) [place] # (Auto) Eos # (Auto) Baso # (Auto) Diff Slide Review ESR INR VBG pH 7.428 VBG pCO2 41 VBG pO2 68.3 H VBG HCO3 27 Sodium 137 Potassium 4.0 Chloride 106 Carbon Dioxide 26 BUN 24 Creatinine 1.1 Estimated Creat Clear 70.62 Estimated GFR 72 Glucose 104 Hemoglobin A1c Lactate Calcium 8.0 L Ionized Calcium Melisa 1.07 L Magnesium 1.7 Total Bilirubin 8.8 H Direct Bilirubin GGT 307 H AST 207 H ALT 145 H Alkaline Phosphatase 72 Ammonia Troponin I C-Reactive Protein 6.7 H Total Protein 6.7 Albumin 3.4 Lipase 60 Procalcitonin 22.10 H TSH Free T4 Urine Color Urine Appearance Urine pH Ur Specific [place] Urine Protein Urine Glucose (UA) Urine Ketones Urine Blood Urine Nitrite Urine Bilirubin Urine Urobilinogen Ur Leukocyte Esterase Urine RBC Urine WBC Ur Squamous Epith Cells Urine Bacteria Urine Opiates Screen Ur Oxycodone Screen Urine Methadone Screen Ur Propoxyphene Screen Acetaminophen Ur Barbiturates Screen U Tricyclic Antidepress Ur Phencyclidine Scrn Ur Amphetamines Screen U Methamphetamines Scrn U Benzodiazepines Scrn Urine Cocaine Screen U Marijuana (THC) Screen Ur Drug Screen Comment Ethyl Alcohol SARS-CoV-2 (PCR) Monoscreen Influenza Type A (PCR) Influenza Type B (PCR) POC Troponin I
[2022-12-27] MEDS: 5 % DEXTROSE/0.9% SOD CHLORIDE 1,000 ML 100 ML IV (12:32)
[2022-12-27] MEDS: HEPARIN 5,000 UNIT/0.5 ML INJ 5000 UNIT SUBCUT (13:15)
[2022-12-27] MEDS: PANTOPRAZOLE SODIUM 40 MG INJ IVP (13:16)
[2022-12-27] MEDS: LACTATED RINGERS 1000 ML 1,000 ML 500 ML IV (16:12)
[2022-12-27] MEDS: lidocaine HCL 2 % JELLY (TOP) STERILE 6 ML UR (16:28)
[2022-12-27 16:48] LABS: Bilirubin Direct* 3.8 mg/dL (0.0-0.5)
[2022-12-27] MEDS: HYDROmorphone 0.5 mg/0.5 ml inj IVP (18:10)
--- NOTE | 2022-12-27 18:25 | W.PM.CROSSCO ---
Subjective Subjective Interval history: MRCP [address] [address] Diagnostic Imaging Report Patient: Karley Perkins MR#: [id number] : 1950 Acct:[id number] Loc: [id number] Service Date: 12/27/[address]: Ubaldo Tripp M.D. Ordering Physician: Bárbara Horowitz M.D. Date of Service: 12/27/22 Procedure(s): MR abdomen wo con Accession Number(s): [id number] cc: Bárbara Horowitz M.D.; Joel Olea M.D.~ For Patients:? As a result of the Century Cures Act, medical imaging exams and procedure reports are released immediately into your electronic medical record.? You may view this report before your referring provider.? If you have questions, please contact your health care provider. INDICATION: Choledocholithiasis Indication: Choledocholithiasis. Technique: MRI of the abdomen without intravenous gadolinium, MRCP. Three plane localizer, 3 plane SSFP, axial T1 weighted in and out of phase, coronal T2 weighted, and high-resolution, heavily T2 weighted 2D/3D MRCP images. No intravenous gadolinium administered. Comparison: CT of the abdomen and pelvis, 12/26/2022. Findings: The common bile duct measures up to 8 millimeters. No common bile duct stone or mass is visualized. There is a duodenal diverticulum with no inflammatory changes. Cholelithiasis is present. There is gallbladder wall thickening and pericholecystic fluid. These findings suggest cholecystitis. See series 9, image 28. No dilation of intrahepatic biliary radicals. There is diffuse hepatic steatosis on chemical shift imaging. The liver morphology is non cirrhotic. Benign renal cysts. There is no hydronephrosis or perinephric edema. Spleen size is normal. Intrathoracic stomach. No adrenal mass. No pancreatic mass or glandular atrophy. Normal marrow signal intensity. No pleural/pericardial effusion. Impression: 1. No common bile duct stone or mass. 2. Cholelithiasis with adjacent inflammatory fat stranding/fluid. Cholecystitis is suspected. 3. Diffuse hepatic steatosis. Liver morphology is non cirrhotic. 4. No abdominal lymphadenopathy or ascites. 5. Report called to Dr. Horowitz, 2/11/23, 1610 hours. Dictated by Shelton Feliz MD @ 12/27/2022 4:10:32 PM will keep pt NPO; surgery consult for tomorrow (ED discussed with surgery on admission); continue antiobiotics; hold subq heparin
--- NOTE | 2022-12-27 19:16 | PC.NURSE ---
Pt alert but has had confusion intermit during day, requires reminders and prompting. Pleasant and redirectable. Had ABD MRI this afternoon, see results. Vitals stable, except temp elevated this afternoon accompanied by pt c/o chills and shaking. MD ordered repeat BC, 1L LR fluid bolus and Holland to be placed. 18f Coude cath placed, pt forgetful and wanting to use restroom this evening but staff reminds pt of catheter. at bedside for most of afternoon and evening, helpful with redirecting pt. Pt c/o 8/10 pain to low back (states chronic), PRN Oxycodone 7.5mg PO admin x2 this shift and PRN IV dilaudid 0.5mg admin. Pt required Ax1 w/ when up OOB, unsteady on his feet. Bed alarm in place and call light within pt's reach.
--- NOTE | 2022-12-27 19:43 | PM.EN ---
Chart Event Note Time Seen by Provider: 18:00 Date Seen: 12/27/22 Chart Event Note: We initiated a transfer of this patient to [facility] on the evening of 12/27/2022. Please see my transfer summary within the discharge transfer to acute care hospital function. Transferred him by ALS. Our concern was sepsis and/or cholangitis from acute cholecystitis. He is in need of a cholecystostomy tube placed by Interventional Radiology or ERCP done by Gastroenterology. Neither of these services are available at [place]. This decision to transfer was communicated at the bedside to both his and the patient. I also discussed this case in depth with our general surgeon, Dr. Arenas. Family is anxious and willing to transfer. Accepting physicians are and Dr. Hussein at [facility].
--- NOTE | 2022-12-27 19:50 | P.DS_ITS ---
DS: Providers Provider Date Seen: 12/27/22 Date of admission: 12/27/22 12:16 Primary care physician: Joel Olea MD Admitting Clinician: Bárabra Horowitz MD Attending Physician on discharge: [facility]: 12/27/22 DS: Diagnosis Discharge Diagnosis (1) Cholecystitis, acute with cholelithiasis: Status: Acute Problem details: -hyperbilirubinemia, increasing. Pain and delirium increasing. Spiked a fever this afternoon to 101 while on antibiotics. Discussed with surgery, patient was not appropriate for our hospital given his platelet count, recent anticoagulation was Xarelto, borderline blood pressures. This patient should receive a cholecystostomy tube more urgently or potentially ERCP in the coming days. Zosyn q.6., IV fluid bolus for mild hypotension, Tylenol for fever -12/27/2022, [facility] accepting (2) Thrombocytopenia: Status: Acute Problem details: plt trending down likley multifactorial given acute infection; +IVF dilutional (3) Hyperbilirubinemia: Status: Acute Problem details: Direct and indirect are both increasing. (4) History of prostate cancer: Status: Acute Problem details: Holland placed with some difficulty. (5) History of pulmonary embolus (PE): Status: Acute Problem details: heparin subQ, last dose of Xarelto 12/26/2019 a.m. (6) BPH w urinary obs/LUTS: Status: Acute Problem details: Holland placed (7) Personal history of DVT (deep vein thrombosis): Status: Acute Problem details: Will hold his Xarelto, covering him with subq heaprin in case he needs a surgical procedure likely cholecystostomy, ERCP, laparoscopic cholecystectomy (8) Narcotic dependency, continuous: Status: Acute Problem details: Will continue his Oxy q.i.d. with some room to improve pain management as needed. (9) Hypertension: Status: Acute Problem details: 5 med regimen-carvedilol, lisinopril, spironolactone, hydrochlorothiazide, amlodipine. Follows with Cardiology. prn hydralazine for SBP>180. continue BB DS: Summary Hospital Course Hospital Course: HOSPITALIST TRANSFER SUMMARY ATTENDING PHYSICIAN: Bárbara Horowitz MD REASON FOR TRANSFER GI intervention with Interventional Radiology. Likely a cholecystostomy tube placement verses ERCP BRIEF HOSPITAL COURSE: Patient is a 72-year-old who presented with vague unwell symptoms on 12/26/2022. Initial lab work revealed a leukocytosis, white blood cell count 10875, bilirubin 6.8 with an elevated direct. CT abdomen pelvis revealed cholelithiasis, possible cholecystitis. Because of his hyperbilirubinemia and mildly dilated common bile duct he was observed overnight on IV antibiotics and prepared for MRCP. Prior to being admitted at this [facility] hospital transfer to a tertiary care facility was attempted. No available beds. This morning his white blood cell count is improved but his blood pressure has remained low to low normal, he is more delirious and his total bilirubin is up trending. His procalcitonin this morning is 22. He spiked a fever this afternoon of 101? F. MRCP was arranged this afternoon which shows no common bile duct stone, only minimal dilation. However cholecystitis with Jackie cholestatic fluid indicative acute cholecystitis was found. In discussion with our general surgeon, we felt tertiary care transfer for cholecystostomy tube was the preferred route. He is chronically anticoagulated on Xarelto for history of DVT PE and it has only been 36 hours (last dose morning of 12/26/2022) his last dose of Xarelto. In addition given his comorbidities and continued fever and borderline hypotension we felt he should be stabilized prior to attempting a cholecystectomy. Thankfully on the evening of the GI service and hospitalist Service at [facility] accepted care of this patient. Transfer is in process. SERVICES NOT AVAILABLE HERE THAT THIS PATIENT NEEDS: Gastroenterology Interventional radiology ACCEPTING PHYSICIAN/SERVICE/LOCATION: Dr. Gregg (Hospitalist), Dr. Hussein (GI) - [facility] MEDICATIONS AT TIME OF TRANSFER: IV Zosyn, oxycodone, dilaudid, fluids some home meds restarted, see MAR DRIPS/LINES: IVF IV antibiotics Holland Cath VITAL SIGN, MEDICATION, LAB/MICRO, IMAGING SUMMARY (full details available in account tabs or by records request) T-max has been 101.2? F at 3:00 p.m. today. This came down with Tylenol to 99.1. By 7:00 p.m. on 12/27/2022 he was 101? F again. Blood pressure has been systolic 133-109 over 60s. His pulses been 70s to 80s Respiratory rate 16 to 20 satting in the low 90s on room air Weight is 106.9 kilos Initial white blood cell count was 18.86, 80% neutrophils. This morning his white blood cell count was down to 9.33. Platelets are down trending from 117 yesterday to 108 today. INR, on anticoagulation is 1.34 PH was 7.4 this morning. His electrolytes have been stable, i.e. sodium 137, potassium 4.0, creatinine 1.1 and BUN 24 Hemoglobin A1c 5.3 Lactate initially was 2.2 and down to 1.6 with IV fluids Ionized calcium 1.07 Magnesium 1.7 Total bilirubin 6.9 yesterday up to 8.8 this morning. His direct went from 2.5- 3.8 GGT has been greater than 300, AST greater than 200, ALT greater than 100. Normal alk-phos. Normal ammonia. Troponin undetectable. CRP going from 2.3 up to 6.7 Lipase normal Albumin normal total protein normal Procalcitonin 22.10 this morning. Not checked yesterday TSH 4.5 Free T4 1.13 Blood cultures were drawn after the initiation of antibiotics on the early evening of 12/27/2022. Please call [facility] for updates on his blood cultures as needed. Negative SARS-CoV-2 12/26/2022 MRCP 12/27/22 1. No common bile duct stone or mass. 2. Cholelithiasis with adjacent inflammatory fat stranding/fluid. Cholecystitis is suspected. 3. Diffuse hepatic steatosis. Liver morphology is non cirrhotic. 4. No abdominal lymphadenopathy or ascites. Chest x-ray on admission. No acute findings. Abdomen/pelvis CT with contrast done on admission 12/26/2022 1. Extensive cholelithiasis. Trace amount of gallbladder wall edema is present, however the gallbladder itself is not distended and no pericholecystic inflammatory changes are present. 2. Common bile duct remains mildly dilated measuring up to 0.8 cm. No calcified choledocholithiasis is identified. 3. Large hiatal hernia. 4. Significant prostatomegaly. Correlate with serum PSA. 5. Additional incidental findings as above. Abdominal ultrasound done on the day of admission 12/26/22 1. Increased echogenicity of the liver parenchyma, compatible with diffuse hepatic steatosis. 2. Mild dilation of the common bile duct measuring up to 0.9 cm. No choledocholithiasis is identified sonographically. Recommend correlation with serum alkaline phosphatase. PHYSICAL EXAM: CONSTITUTIONAL: keeping eyes closed, responds. reports pain everywhere. less interactive; some delirium. VITAL SIGNS: see record. Exam unchanged from earlier with notable exceptions: more delirious, more right flank pain. DISPOSITION: Transfer via ALS Time spent on discharge >30 minutes. This includes speaking with accepting physician; family/patient and coordinating meds/drips for transfer Time Spent with Patient Time attestation: Total time spent providing and/or coordinating discharge services: Exam Const: Vital Signs, click to edit/add: Vital Signs - 24 hr 12/26/22 19:52 12/26/22 19:52 12/26/22 22:23 Temperature 98.6 F 98.6 F Pulse Rate Pulse Rate [Right Radial] 80 80 Pulse Rate [orthos tatic lying Right Radial] Pulse Rate [orthos tatic sitting Righ t Radial] Pulse Rate [orthos tatic standing Rig ht Radial] Respiratory Rate 16 16 Blood Pressure [Ri ght Arm] 132/89 132/89 Blood Pressure [or thostatic lying Le ft Arm] Blood Pressure [or thostatic sitting] Blood Pressure [or thostatic standing Left Arm] Pulse Oximetry 93 93 93 Oxygen Delivery Me thod Room Air Room Air Room Air 12/26/22 22:24 12/26/22 22:44 12/26/22 23:23 Temperature 98.6 F 98.6 F Pulse Rate 79 Pulse Rate [Right Radial] 80 79 Pulse Rate [orthos tatic lying Right Radial] Pulse Rate [orthos tatic sitting Righ t Radial] Pulse Rate [orthos tatic standing Rig ht Radial] Respiratory Rate 16 16 Blood Pressure [Ri ght Arm] 132/89 133/82 Blood Pressure [or thostatic lying Le ft Arm] Blood Pressure [or thostatic sitting] Blood Pressure [or thostatic standing Left Arm] Pulse Oximetry 93 92 Oxygen Delivery Me thod Room Air Room Air 12/26/22 23:44 12/26/22 23:45 12/26/22 23:53 Temperature Pulse Rate 79 Pulse Rate [Right Radial] 79 Pulse Rate [orthos tatic lying Right Radial] Pulse Rate [orthos tatic sitting Righ t Radial] Pulse Rate [orthos tatic standing Rig ht Radial] Respiratory Rate 16 Blood Pressure [Ri ght Arm] Blood Pressure [or thostatic lying Le ft Arm] Blood Pressure [or thostatic sitting] Blood Pressure [or thostatic standing Left Arm] Pulse Oximetry 92 Oxygen Delivery Me thod 12/27/22 02:47 12/27/22 02:50 12/27/22 05:40 Temperature 98.6 F 98.6 F Pulse Rate Pulse Rate [Right Radial] 86 Pulse Rate [orthos tatic lying Right Radial] 86 Pulse Rate [orthos tatic sitting Righ t Radial] 93 Pulse Rate [orthos tatic standing Rig ht Radial] 97 Respiratory Rate 16 Blood Pressure [Ri ght Arm] 132/82 Blood Pressure [or thostatic lying Le ft Arm] 133/82 Blood Pressure [or thostatic sitting] 151/85 H Blood Pressure [or thostatic standing Left Arm] 162/97 H Pulse Oximetry 92 Oxygen Delivery Me thod Room Air 12/27/22 07:00 12/27/22 07:00 12/27/22 09:50 Temperature 98.3 F Pulse Rate 66 Pulse Rate [Right Radial] 73 Pulse Rate [orthos tatic lying Right Radial] Pulse Rate [orthos tatic sitting Righ t Radial] Pulse Rate [orthos tatic standing Rig ht Radial] Respiratory Rate 16 Blood Pressure [Ri ght Arm] 117/70 Blood Pressure [or thostatic lying Le ft Arm] Blood Pressure [or thostatic sitting] Blood Pressure [or thostatic standing Left Arm] Pulse Oximetry 92 92 Oxygen Delivery Me thod Room Air 12/27/22 11:00 12/27/22 11:30 12/27/22 15:00 Temperature 98.4 F 99.2 F 101.2 F H Pulse Rate Pulse Rate [Right Radial] 64 86 Pulse Rate [orthos tatic lying Right Radial] Pulse Rate [orthos tatic sitting Righ t Radial] Pulse Rate [orthos tatic standing Rig ht Radial] Respiratory Rate 16 20 Blood Pressure [Ri ght Arm] 121/68 109/64 Blood Pressure [or thostatic lying Le ft Arm] Blood Pressure [or thostatic sitting] Blood Pressure [or thostatic standing Left Arm] Pulse Oximetry 95 92 Oxygen Delivery Me thod Room Air Room Air 12/27/22 15:00 12/27/22 17:00 12/27/22 19:03 Temperature 99.1 F 101 F H Pulse Rate Pulse Rate [Right Radial] 82 83 Pulse Rate [orthos tatic lying Right Radial] Pulse Rate [orthos tatic sitting Righ t Radial] Pulse Rate [orthos tatic standing Rig ht Radial] Respiratory Rate 20 16 Blood Pressure [Ri ght Arm] 133/76 129/68 Blood Pressure [or thostatic lying Le ft Arm] Blood Pressure [or thostatic sitting] Blood Pressure [or thostatic standing Left Arm] Pulse Oximetry 94 93 91 Oxygen Delivery Me thod Room Air Room Air 12/27/22 17:00 Temperature Pulse Rate 79 Pulse Rate [Right Radial] Pulse Rate [orthos tatic lying Right Radial] Pulse Rate [orthos tatic sitting Righ t Radial] Pulse Rate [orthos tatic standing Rig ht Radial] Respiratory Rate Blood Pressure [Ri ght Arm] Blood Pressure [or thostatic lying Le ft Arm] Blood Pressure [or thostatic sitting] Blood Pressure [or thostatic standing Left Arm] Pulse Oximetry Oxygen Delivery Me thod DS: Data Data Completed and Pending Labs on day of discharge: Labs from last 24 hours 12/27/22 12/27/22 12/27/22 15:26 05:29 05:29 WBC RBC Hgb Hct MCV MCH MCHC RDW Coeff of Estella Plt Count Neut % (Auto) Lymph % (Auto) [place] % (Auto) Eos % (Auto) Baso % (Auto) Neut # (Auto) Lymph # (Auto) [place] # (Auto) Eos # (Auto) Baso # (Auto) INR VBG pH 7.428 VBG pCO2 41 VBG pO2 68.3 H VBG HCO3 27 Sodium 137 Potassium 4.0 Chloride 106 Carbon Dioxide 26 BUN 24 Creatinine 1.1 Estimated Creat Clear 70.62 Estimated GFR 72 Glucose 104 Hemoglobin A1c Calcium 8.0 L Ionized Calcium Melisa 1.07 L Magnesium 1.7 Total Bilirubin 8.8 H Direct Bilirubin 3.8 H GGT 307 H AST 207 H ALT 145 H Alkaline Phosphatase 72 C-Reactive Protein 6.7 H Total Protein 6.7 Albumin 3.4 Lipase 60 Procalcitonin Cancelled 22.10 H Free T4 12/27/22 12/27/22 12/26/22 05:29 05:29 15:26 WBC 9.33 RBC 4.84 Hgb 13.6 Hct 39.9 MCV 82 MCH 28 MCHC 34 RDW Coeff of Estella 13.0 Plt Count 108 L Neut % (Auto) 78.0 H Lymph % (Auto) 3.8 L [place] % (Auto) 17.3 H Eos % (Auto) 0.2 Baso % (Auto) 0.6 Neut # (Auto) 7.30 H Lymph # (Auto) 0.40 L [place] # (Auto) 1.60 H Eos # (Auto) 0.02 Baso # (Auto) 0.06 INR 1.34 H VBG pH VBG pCO2 VBG pO2 VBG HCO3 Sodium Potassium Chloride Carbon Dioxide BUN Creatinine Estimated Creat Clear Estimated GFR Glucose Hemoglobin A1c Calcium Ionized Calcium Melisa Magnesium Total Bilirubin Direct Bilirubin GGT AST ALT Alkaline Phosphatase C-Reactive Protein Total Protein Albumin Lipase Procalcitonin 26.30 H Free T4 12/26/22 12/26/22 12/26/22 14:02 14:02 14:02 WBC RBC Hgb Hct MCV MCH MCHC RDW Coeff of Estella Plt Count Neut % (Auto) Lymph % (Auto) [place] % (Auto) Eos % (Auto) Baso % (Auto) Neut # (Auto) Lymph # (Auto) [place] # (Auto) Eos # (Auto) Baso # (Auto) INR VBG pH VBG pCO2 VBG pO2 VBG HCO3 Sodium Potassium Chloride Carbon Dioxide BUN Creatinine Estimated Creat Clear Estimated GFR Glucose Hemoglobin A1c 5.29 Calcium Ionized Calcium Melisa Magnesium Total Bilirubin Direct Bilirubin GGT 370 H AST ALT Alkaline Phosphatase C-Reactive Protein Total Protein Albumin Lipase 94 Procalcitonin Free T4 1.13 Preliminary micro results at discharge 12/26/22 17:45 Urine Culture - Preliminary Urine,Clean Catch No growth. Discharge Plan [facility] Date of Admission: 12/27/22 12:16 Attending Provider on Discharge: Bárbara Horowitz Primary Care Provider: Joel Olea Condition: Stable Hospital Course: HOSPITALIST TRANSFER SUMMARY ATTENDING PHYSICIAN: Bárbara Horowitz MD REASON FOR TRANSFER GI intervention with Interventional Radiology. Likely a cholecystostomy tube placement verses ERCP BRIEF HOSPITAL COURSE: Patient is a 72-year-old who presented with vague unwell symptoms on 12/26/2022. Initial lab work revealed a leukocytosis, white blood cell count 99203, bilirubin 6.8 with an elevated direct. CT abdomen pelvis revealed cholelithiasis, possible cholecystitis. Because of his hyperbilirubinemia and mildly dilated common bile duct he was observed overnight on IV antibiotics and prepared for MRCP. Prior to being admitted at this [facility] hospital transfer to a tertiary care facility was attempted. No available beds. This morning his white blood cell count is improved but his blood pressure has remained low to low normal, he is more delirious and his total bilirubin is up trending. His procalcitonin this morning is 22. He spiked a fever this afternoon of 101? F. MRCP was arranged this afternoon which shows no common bile duct stone, only minimal dilation. However cholecystitis with Jackie cholestatic fluid indicative acute cholecystitis was found. In discussion with our general surgeon, we felt tertiary care transfer for cholecystostomy tube was the preferred route. He is chronically anticoagulated on Xarelto for history of DVT PE and it has only been 36 hours (last dose morning of 12/26/2022) his last dose of Xarelto. In addition given his comorbidities and continued fever and borderline hypotension we felt he should be stabilized prior to attempting a cholecystectomy. Thankfully on the evening of the GI service and hospitalist Service at [facility] accepted care of this patient. Transfer is in process. SERVICES NOT AVAILABLE HERE THAT THIS PATIENT NEEDS: Gastroenterology Interventional radiology ACCEPTING PHYSICIAN/SERVICE/LOCATION: Dr. Gregg (Hospitalist), Dr. Hussein (GI) - [facility] MEDICATIONS AT TIME OF TRANSFER: IV Zosyn, oxycodone, dilaudid, fluids some home meds restarted, see MAR DRIPS/LINES: IVF IV antibiotics Holland Cath VITAL SIGN, MEDICATION, LAB/MICRO, IMAGING SUMMARY (full details available in account tabs or by records request) T-max has been 101.2? F at 3:00 p.m. today. This came down with Tylenol to 99.1. By 7:00 p.m. on 12/27/2022 he was 101? F again. Blood pressure has been systolic 133-109 over 60s. His pulses been 70s to 80s Respiratory rate 16 to 20 satting in the low 90s on room air Weight is 106.9 kilos Initial white blood cell count was 18.86, 80% neutrophils. This morning his white blood cell count was down to 9.33. Platelets are down trending from 117 yesterday to 108 today. INR, on anticoagulation is 1.34 PH was 7.4 this morning. His electrolytes have been stable, i.e. sodium 137, potassium 4.0, creatinine 1.1 and BUN 24 Hemoglobin A1c 5.3 Lactate initially was 2.2 and down to 1.6 with IV fluids Ionized calcium 1.07 Magnesium 1.7 Total bilirubin 6.9 yesterday up to 8.8 this morning. His direct went from 2.5- 3.8 GGT has been greater than 300, AST greater than 200, ALT greater than 100. Normal alk-phos. Normal ammonia. Troponin undetectable. CRP going from 2.3 up to 6.7 Lipase normal Albumin normal total protein normal Procalcitonin 22.10 this morning. Not checked yesterday TSH 4.5 Free T4 1.13 Blood cultures were drawn after the initiation of antibiotics on the early evening of 12/27/2022. Please call [facility] for updates on his blood cultures as needed. Negative SARS-CoV-2 12/26/2022 MRCP 12/27/22 1. No common bile duct stone or mass. 2. Cholelithiasis with adjacent inflammatory fat stranding/fluid. Cholecystitis is suspected. 3. Diffuse hepatic steatosis. Liver morphology is non cirrhotic. 4. No abdominal lymphadenopathy or ascites. Chest x-ray on admission. No acute findings. Abdomen/pelvis CT with contrast done on admission 12/26/2022 1. Extensive cholelithiasis. Trace amount of gallbladder wall edema is present, however the gallbladder itself is not distended and no pericholecystic inflammatory changes are present. 2. Common bile duct remains mildly dilated measuring up to 0.8 cm. No calcified choledocholithiasis is identified. 3. Large hiatal hernia. 4. Significant prostatomegaly. Correlate with serum PSA. 5. Additional incidental findings as above. Abdominal ultrasound done on the day of admission 12/26/22 1. Increased echogenicity of the liver parenchyma, compatible with diffuse hepatic steatosis. 2. Mild dilation of the common bile duct measuring up to 0.9 cm. No choledocholithiasis is identified sonographically. Recommend correlation with serum alkaline phosphatase. PHYSICAL EXAM: CONSTITUTIONAL: keeping eyes closed, responds. reports pain everywhere. less interactive; some delirium. VITAL SIGNS: see record. Exam unchanged from earlier with notable exceptions: more delirious, more right flank pain. DISPOSITION: Transfer via ALS Time spent on discharge >30 minutes. This includes speaking with accepting physician; family/patient and coordinating meds/drips for transfer Oxygen: No Urinary Catheter: Yes
[2022-12-27] MEDS: ACETAMINOPHEN 325 MG TABLET 650 MG PO (20:49)
--- NOTE | 2022-12-27 21:00 | PC.NURSE ---
Pt transferred to [place] via EMS. Tylenol given prior to exit. Pt ambulated to [facility].
--- NOTE | 2022-12-27 23:05 | CRLHL7_ITS ---
For Patients: As a result of the Cures Act, medical imaging exams and procedure reports are released immediately into your electronic medical record. You may view this report before your referring provider. If you have questions, please contact your health care provider. INDICATION: Choledocholithiasis Indication: Choledocholithiasis. Technique: MRI of the abdomen without intravenous gadolinium, MRCP. Three plane localizer, 3 plane SSFP, axial T1 weighted in and out of phase, coronal T2 weighted, and high-resolution, heavily T2 weighted 2D/3D MRCP images. No intravenous gadolinium administered. Comparison: CT of the abdomen and pelvis, 12/26/2022. Findings: The common bile duct measures up to 8 millimeters. No common bile duct stone or mass is visualized. There is a duodenal diverticulum with no inflammatory changes. Cholelithiasis is present. There is gallbladder wall thickening and pericholecystic fluid. These findings suggest cholecystitis. See series 9, image 28. No dilation of intrahepatic biliary radicals. There is diffuse hepatic steatosis on chemical shift imaging. The liver morphology is non cirrhotic. Benign renal cysts. There is no hydronephrosis or perinephric edema. Spleen size is normal. Intrathoracic stomach. No adrenal mass. No pancreatic mass or glandular atrophy. Normal marrow signal intensity. No pleural/pericardial effusion. Impression: 1. No common bile duct stone or mass. 2. Cholelithiasis with adjacent inflammatory fat stranding/fluid. Cholecystitis is suspected. 3. Diffuse hepatic steatosis. Liver morphology is non cirrhotic. 4. No abdominal lymphadenopathy or ascites. 5. Report called to Dr. Horowitz, 12/27/22, 1610 hours. Dictated by Shelton Feliz MD @ 12/27/2022 4:10:32 PM Dictated by: Shelton Feliz MD @ 12/27/2022 16:10:43 (Electronically Signed)
== END 2022-12-27 20:56 | disposition short-term general hospital (02) | DRG 445 ==
LOC: ED 15:10 → MEDSURG 19:41
PROVIDERS: Admitting Provider Family Medicine; Emergency Provider Family Medicine; PCP Surgery; Visit Provider Hospitalist
DX: K80.62 Calculus of gallbladder and bile duct with acute cholecystitis without obstruction (principal); F11.20 Opioid dependence, uncomplicated; N13.8 Other obstructive and reflux uropathy; E80.6 Other disorders of bilirubin metabolism; I10 Essential (primary) hypertension; L40.50 Arthropathic psoriasis, unspecified; D69.6 Thrombocytopenia, unspecified; G89.29 Other chronic pain; K76.0 Fatty (change of) liver, not elsewhere classified; K21.9 Gastro-esophageal reflux disease without esophagitis; Z86.711 Personal history of pulmonary embolism; Z86.718 Personal history of other venous thrombosis and embolism; N40.1 Benign prostatic hyperplasia with lower urinary tract symptoms; M48.061 Spinal stenosis, lumbar region without neurogenic claudication; Z85.46 Personal history of malignant neoplasm of prostate
CPT/HCPCS: 36415; 71046; 74177; 74181; 76705; 80048; 80053; 80076; 80143; 80306; 81001; 82077; 82140; 82248; 82330; 82803; 82962; 82977; 83036; 83605; 83690; 83735; 84145; 84439; 84443; 84484; 85025; 85610; 85651; 86140; 86308; 87040; 87086; 87631; 93005; 94761; 99285; G0378; A9270; C9113; J0610; J1170; J1644; J2543; J7030; J7042; J7120; Q9967

== ENCOUNTER 2022-12-27 20:46 | Outpatient (CLI) | payer MEDICARE, MEDICAID, SELFPAY | END 2022-12-27 20:47 | disposition home or self-care (01) | PROVIDERS: PCP Surgery; Visit Provider Family Medicine | DX: R50.9 Fever, unspecified (principal); D72.822 Plasmacytosis; R74.8 Abnormal levels of other serum enzymes | CPT/HCPCS: A0425; A0426 ==

== ENCOUNTER 2023-01-05 12:46 | Emergency (ER) | payer MEDICARE, MEDICAID, SELFPAY ==
[2023-01-05 13:16] VITALS: BP 137/88; PULSE 68; RESP 18; TEMP 36.6; O2SAT 97; BMI 30.6
[2023-01-05 13:49] LABS: Appearance Urine Turbid (Clear); Bilirubin Urine 1+ (Negative); Blood Urine 3+ (Negative); Color Urine Red (Yellow); Glucose Urine Negative (Negative); Ketones Urine Negative (Negative); Leukocyte Esterase Urine Negative (Negative); Nitrite Urine Negative (Negative); Protein Urine 3+ (Negative); Specific Gravity Urine 1.015 (1.000-1.030)
[2023-01-05 14:07] LABS: Bacteria Urine Few; RBC Urine >100 (0-2); Squamous Epithelial Cell Urine Few (None-Few); WBC Urine 0-2 (0-5)
--- NOTE | 2023-01-05 17:18 | ED.MALEGU ---
HPI - Male Genitourinary General Chief complaint: Urogenital Problems, Male Stated complaint: Blood in urine Time Seen by Provider: 01/05/23 17:07 History of Present Illness HPI Narrative: This 72-year-old male comes in reporting gross hematuria over the past couple days. He was hospitalized recently with elevated bilirubin and transferred for an ERCP. During that time he had a catheter in place. This was removed at time of discharge which was 4 days ago. He did not have any bleeding initially but did start bleeding early yesterday morning. He does not report any lightheadedness or shortness of breath. He states that his recent passing of urine was look less bloody. He is taking Xarelto and during his hospitalization he was instructed to begin taking baby aspirin daily on top of his regular Xarelto. He has been taking baby aspirin now for the past 4 days. He does have a remote history of prostate cancer which has been treated and he states symptoms and this condition is completely resolved. Related Data Home Medications Medication Instructions Recorded Confirmed albuterol sulfate 90 mcg/actuation 2 inh inhalation Q4H PRN 12/26/22 12/26/22 aerosol inhaler (Ventolin HFA) amlodipine 10 mg tablet 10 mg PO DAILY 12/26/22 12/26/22 calcipotriene 0.005 % topical 1 applic topical DAILY PRN 12/26/22 12/26/22 cream (Dovonex) carvedilol 25 mg tablet 50 mg PO BID 12/26/22 12/26/22 diclofenac sodium 1 % topical gel 2 g topical QID PRN 12/26/22 12/26/22 gabapentin 300 mg capsule 300 mg PO BID 12/26/22 12/26/22 hydrochlorothiazide 25 mg tablet 25 mg PO DAILY 12/26/22 12/26/22 lisinopril 40 mg tablet 40 mg PO DAILY 12/26/22 12/26/22 naloxegol 25 mg tablet (Movantik) 25 mg PO DAILY 12/26/22 12/26/22 omeprazole 20 mg capsule,delayed 20 mg PO DAILY 12/26/22 12/26/22 release oxycodone-acetaminophen 7.5 mg-325 1 tab PO Q6H 12/26/22 12/26/22 mg tablet rivaroxaban 20 mg tablet (Xarelto) 20 mg PO DAILY 12/26/22 12/26/22 secukinumab 150 mg/mL subcutaneous 150 mg subcut .MONTHLY 12/26/22 12/26/22 pen injector (Cosentyx Pen 300 mg/2 Pens () sildenafil (pulm.hypertension) 20 40 - 100 mg PO PRN PRN sexual 12/26/22 12/26/22 mg tablet activity spironolactone 100 mg tablet 100 mg PO DAILY 12/26/22 12/26/22 sulfasalazine 500 mg tablet 1.5 g PO BID 12/26/22 12/26/22 triamcinolone acetonide 0.5 % 1 applic topical BID PRN 12/26/22 12/26/22 topical cream Allergies Allergy/AdvReac Type Severity Reaction Status Date / Time ibuprofen Allergy Verified 12/26/22 15:33 naproxen Allergy Verified 12/26/22 15:33 Review of Systems Status of ROS: Reports: 10 or more systems reviewed and unremarkable except as noted in History and below Narrative: Constitutional: No fevers, no weight gain or loss. Eyes: No discharge. No vision changes. HENT: No congestion, no sore throat, no ear pain. Cardiovascular: No chest pain, no palpitations. Respiratory: No shortness of breath, no wheezes, no cough. Gastrointestinal: No abdominal pain, no vomiting, no diarrhea. Genitourinary: No dysuria. Hematuria as described above. Musculoskeletal: Normal range of motion. Skin: No rashes, no pruritis. Neurological: No dizziness, weakness, sensory change, speech change. Endo/Heme/Allergies: No bruising or bleeding. No polydipsia. Pysch: no suicidality, no anxiety, no insomnia. All other systems reviewed and are negative. [facility] Medical History (Updated 01/05/23 @ 18:27 by Gilberto Walter MD) BPH w urinary obs/LUTS Chronic pain GERD (gastroesophageal reflux disease) History of prostate cancer History of pulmonary embolus (PE) Hypertension Lumbar stenosis Narcotic dependency, continuous Personal history of DVT (deep vein thrombosis) Psoriatic arthritis Surgical History (Updated 12/26/22 @ 18:49 by Bárbara Horowitz MD) H/O lumbosacral spine surgery H/O vasectomy History of inguinal hernia repair, bilateral History of oral surgery Umbilical hernia Social History (Updated 12/26/22 @ 22:47 by Bárbara Horowitz MD) Narrative: , lives in [place]. Usually sees the [facility] for routine care. 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 [employer]. Chews tobacco, no cigarettes. rare social alcohol. FULL CODE. Highest level of school completed/degree received: Bachelor's degree Smoking Status: Former smoker What tobacco products do you use: cigarettes Smoking quit date/years: <= 15 years ago Do you use any of these nicotine containing products: Smokeless Tobacco Second hand tobacco smoke exposure: No How often do you have a drink containing alcohol: 2-4 times a month AUDIT-C Alcohol total score: 2 Non-prescribed substance use: denies use service: Yes Exam Narrative: Exam Narrative: Constitutional: Well-developed, well-nourished, no acute distress. HEENT: Normocephalic, atraumatic. Neck: Normal range of motion. Nontender. Supple. Heart: Regular. No murmurs. Normal rate. Intact distal pulses. Lungs: Clear to auscultation. No chest discomfort. No wheezes, rhonchi, or rales. Abdomen: Normal bowel sounds. Nontender. No rebound tenderness. Genitalia: Deferred. Back: No midline tenderness. Normal range of motion. Extremities: Normal range of motion. No injury. Skin: Intact. No rash. Warm. No erythema or pallor. Neurologic: No altered sensation. No weakness. Alert and oriented. Psychiatric: No suicidality. No anxiety or depression. No insomnia. Nursing notes and vitals signs are reviewed. Const: Vital Signs, click to edit/add: Vital Signs - 24 hr 01/05/23 13:16 Temperature 97.8 F Pulse Rate [Pulse Oximeter] 68 Respiratory Rate 18 Blood Pressure [Ri ght Upper Arm] 137/88 Pulse Oximetry 97 Oxygen Delivery Me thod Room Air Course Vital Signs Vital signs: Initial Vital Signs Temperature 97.8 F 01/05/23 13:16 Temperature Source Temporal Artery Scan 01/05/23 13:16 Pulse Rate 68 01/05/23 13:16 Respiratory Rate 18 01/05/23 13:16 Blood Pressure 137/88 01/05/23 13:16 Blood Pressure Mean 104 01/05/23 13:16 Blood Pressure Position Supine 01/05/23 13:16 Pulse Oximetry 97 01/05/23 13:16 Oxygen Delivery Method 01/05/23 13:16 Vital Signs Temperature 97.8 F 01/05/23 13:16 Pulse Rate 68 01/05/23 13:16 Respiratory Rate 18 01/05/23 13:16 Blood Pressure 137/88 01/05/23 13:16 Pulse Oximetry 97 01/05/23 13:16 Oxygen Delivery Method 01/05/23 13:16 Temperature 97.8 F 01/05/23 13:16 Pulse Rate 68 01/05/23 13:16 Respiratory Rate 18 01/05/23 13:16 Blood Pressure 137/88 01/05/23 13:16 Pulse Oximetry 97 01/05/23 13:16 Oxygen Delivery Method 01/05/23 13:16 MDM - Male Genitourinary MDM Narrative Medical decision making narrative: This patient comes in reporting hematuria for the past couple days. He was recently admitted into the hospital because of elevated bilirubin and a suspicion of an obstructive process in the biliary system. He was transferred elsewhere where he did have a HIDA scan and was determined that there was no such obstruction or need for cholecystectomy. His bilirubin decreased from 8 to 2 at the time of discharge. He is taking Xarelto and was instructed to take a baby aspirin. He did this for several days but discontinued today as he has gross hematuria. He does not have any sign of urinary retention. He does not report any fevers. Urinalysis does show gross hematuria but no sign of infection. Lab results returned with normal hemoglobin and a bilirubin that now has a total of 1.5. These reassuring results are communicated with the patient. I encouraged him to continue to hold aspirin until hematuria subsides to. I recommended taking extra fluids but there is benefit in continuing also with Xarelto to prevent blood clot or stroke. He should return if he has urinary retention or other worsening symptoms. Lab Data Labs: Lab Results 01/05/23 01/05/23 01/05/23 Range/Units 13:25 17:50 17:50 WBC 6.77 (4.50-11.00) K/uL RBC 4.89 (4.30-5.90) m/uL Hgb 13.7 (13.5-17.5) gm/dL Hct 41.2 (37.0-53.0) % MCV 84 (80-100) fL MCH 28 (26-34) pg MCHC 33 (32-36) gm/dL RDW Coeff of Estella 13.1 (11.5-15.5) % Plt Count 194 (140-440) K/uL Neut % (Auto) 59.8 (42.0-72.0) % Lymph % (Auto) 19.5 L (20-44) % [place] % (Auto) 17.3 H (0.0-11.0) % Eos % (Auto) 1.9 (0.0-7.0) % Baso % (Auto) 1.2 (0.0-3.0) % Neut # (Auto) 4.05 (1.7-7.0) K/uL Lymph # (Auto) 1.30 (0.90-2.90) K/uL [place] # (Auto) 1.20 H (0.00-0.90) K/UL Eos # (Auto) 0.13 (0.00-0.50) K/uL Baso # (Auto) 0.08 (0.00-0.30) K/uL Sodium 136 (135-149) mmol/L Potassium 4.2 (3.6-5.1) mmol/L Chloride 103 (96-114) mmol/L Carbon Dioxide 27 (20-32) mmol/L BUN 15 (7-30) mg/dL Creatinine 0.9 (0.5-1.5) mg/dL Estimated Creat Clear 77.68 Estimated GFR 92 ml/min Glucose 107 (60-115) mg/dL Calcium 9.1 (8.4-10.6) mg/dL Total Bilirubin 1.5 (0.1-1.5) mg/dL Direct Bilirubin 0.8 H (0.0-0.5) mg/dL AST 30 (12-35) U/L ALT 40 (4-50) U/L Alkaline Phosphatase 72 (40-150) U/L Total Protein 7.9 (6.0-8.3) g/dL Albumin 4.1 (3.3-5.0) g/dL Urine Color Red A (Yellow) Urine Appearance Turbid A (Clear) Urine pH 6.0 (5.0-8.5) Ur Specific [place] 1.015 (1.000-1.030) Urine Protein 3+ A (Negative) Urine Glucose (UA) Negative (Negative) Urine Ketones Negative (Negative) Urine Blood 3+ A (Negative) Urine Nitrite Negative (Negative) Urine Bilirubin 1+ A (Negative) Urine Urobilinogen 1.0 (0.2-1.0) Ur Leukocyte Esterase Negative (Negative) Urine RBC >100 A (0-2) Urine WBC 0-2 (0-5) Ur Squamous Epith Cells Few (None-Few) Urine Bacteria Few A (None) Discharge Plan Discharge Clinical Impression: Hematuria Patient Disposition: Home, Self-Care Condition: Stable Additional Instructions: Take plenty of fluids. Continue to hold aspirin while there is sign of hematuria. Follow up with MD or return if worsening. Prescriptions: No Action sulfasalazine 500 mg tablet 1.5 g PO BID Label Comments: TAKE THREE TABLETS BY MOUTH TWICE A DAY. NEED LABS FOR FURTHER REFILLS spironolactone 100 mg tablet 100 mg PO DAILY amlodipine 10 mg tablet 10 mg PO DAILY gabapentin 300 mg capsule 300 mg PO BID Label Comments: TAKE ONE CAPSULE BY MOUTH TWICE A DAY omeprazole 20 mg capsule,delayed release(DR/EC) 20 mg PO DAILY oxycodone-acetaminophen 7.5-325 mg tablet 1 tab PO Q6H lisinopril 40 mg tablet 40 mg PO DAILY Xarelto 20 mg tablet 20 mg PO DAILY Movantik 25 mg tablet 25 mg PO DAILY Label Comments: TAKE 1 TABLET BY MOUTH BEFORE BREAKFAST Cosentyx Pen (2 Pens) 150 mg/mL pen injector 150 mg SUBCUT .MONTHLY albuterol sulfate [Ventolin HFA] 90 mcg/actuation HFA aerosol inhaler 2 inh INHALATION Q4H PRN Label Comments: INHALE 1-2 PUFFS BY MOUTH EVERY 4 HOURS IF NEEDED FOR SHORTNESS OF BREATH carvedilol 25 mg tablet 50 mg PO BID Label Comments: TAKE 2 TABLETS BY MOUTH EVERY MORNING AND 2 TABLETS EVERY EVENING. TAKE WITH MEALS diclofenac sodium 1 % gel 2 g TOPICAL QID PRN Label Comments: APPLY 4 GRAMS TO AFFECTED AREA TOPICALLY FOUR TIMES A DAY hydrochlorothiazide 25 mg tablet 25 mg PO DAILY Label Comments: TAKE ONE TABLET BY MOUTH EVERY DAY sildenafil (pulm.hypertension) 20 mg tablet 40 - 100 mg PO PRN PRN (Reason: sexual activity) Label Comments: TAKE 1-5 TABLETS BY MOUTH AN HR PRIRO TO SEXUAL ACTIVITY NOT TO EXCEED 100MG IN 24 HOURS triamcinolone acetonide 0.5 % cream 1 applic topical BID PRN calcipotriene [Dovonex] 0.005 % cream 1 applic topical DAILY PRN Rx Instructions: rub in gently and completely Follow Up/Referrals: Joel Olea MD [Primary Care Provider] - Stand Alone Forms: [employer] Info Instructions
[2023-01-05 17:58] LABS: Basophils Absolute Auto 0.08 K/uL (0.00-0.30); Basophils Percent Auto 1.2 % (0.0-3.0); Eosinophils Absolute Auto 0.13 K/uL (0.00-0.50); Eosinophils Percent Auto 1.9 % (0.0-7.0); Hematocrit 41.2 % (37.0-53.0); Hemoglobin* 13.7 gm/dL (13.5-17.5); Immature Granulocytes Abs Auto 0.02 K/uL (0.00-0.30); Immature Granulocytes Pct Auto 0.3 %; Lymphocytes Percent Auto 19.5 % (20-44); Mean Corpuscular HGB Conc 33 gm/dL (32-36); Mean Corpuscular Hemoglobin 28 pg (26-34); Mean Corpuscular Volume 84 fL (80-100); Monocytes Percent Auto 17.3 % (0.0-11.0); Neutrophils Absolute Auto 4.05 K/uL (1.7-7.0); Neutrophils Percent Auto 59.8 % (42.0-72.0); Platelet Count* 194 K/uL (140-440); RDW Coefficient of Variation % 13.1 % (11.5-15.5); Red Blood Count 4.89 m/uL (4.30-5.90); White Blood Count* 6.77 K/uL (4.50-11.00)
[2023-01-05 18:07] LABS: Slide Review Reflex No
[2023-01-05 18:12] LABS: Albumin* 4.1 g/dL (3.3-5.0); Chloride* 103 mmol/L (96-114)
[2023-01-05 18:13] LABS: Potassium* 4.2 mmol/L (3.6-5.1); Sodium* 136 mmol/L (135-149)
[2023-01-05 18:15] LABS: Alkaline Phosphatase* 72 U/L (40-150); Aspartate Amino Transferase* 30 U/L (12-35); Bilirubin Direct* 0.8 mg/dL (0.0-0.5); Bilirubin Total* 1.5 mg/dL (0.1-1.5); Blood Urea Nitrogen* 15 mg/dL (7-30); Carbon Dioxide* 27 mmol/L (20-32); Creatinine* 0.9 mg/dL (0.5-1.5); Est. Creatinine Clearance* 77.68; Estimated Glomerular Filt Rate 92 ml/min; Total Protein* 7.9 g/dL (6.0-8.3)
[2023-01-05 18:16] LABS: Alanine Aminotransferase* 40 U/L (4-50); Calcium* 9.1 mg/dL (8.4-10.6); Glucose* 107 mg/dL (60-115)
== END 2023-01-05 18:34 | disposition home or self-care (01) ==
PROVIDERS: Emergency Provider Emergency Medicine Emergency Medical Services; PCP Surgery
DX: R31.9 Hematuria, unspecified (principal)
CPT/HCPCS: 36415; 80048; 80076; 81003; 81015; 85025; 87086; 99283; 99284

== ENCOUNTER 2023-02-17 10:45 | Outpatient (CLI) | payer MEDICARE, MEDICAID, SELFPAY | END 2023-02-17 10:46 | disposition home or self-care (01) | PROVIDERS: PCP Surgery; Visit Provider Family Medicine | DX: M54.16 Radiculopathy, lumbar region (principal); M51.36 Other intervertebral disc degeneration, lumbar region | CPT/HCPCS: 64483; J1100; Q9966 ==

== ENCOUNTER 2024-01-12 10:38 | Outpatient (CLI) | payer MEDICARE, MEDICAID, SELFPAY | END 2024-01-12 10:39 | disposition home or self-care (01) | LOC: INJ CL 10:38 | PROVIDERS: PCP Surgery; Visit Provider Family Medicine | DX: M54.16 Radiculopathy, lumbar region (principal); M51.36 Other intervertebral disc degeneration, lumbar region | CPT/HCPCS: 64483; J1100; Q9966 ==

== ENCOUNTER 2024-11-15 12:15 | Outpatient (CLI) | payer MEDICARE, MEDICAID, SELFPAY ==
--- OUTSIDE RECORDS SUMMARY | 2024-11-08 09:37 | XMS_ITS | Summary of Care ---
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 Name Role Phone NONE, NO PCP Primary Care Physician Unavailab le Encounter OL_PR FIN NBR [id number] Date(s): 04/09/18 - 04/09/[address] [address]- [place] Encounter Diagnosis Acute bilateral back pain(Discharge Diagnosis) - 04/09/18 Discharge Disposition: Home or Self Care Attending Physician: Nik Pedro MD Admitting Physician: Nik Pedro MD Vital Signs Most recent to oldest [Reference Range]: 1 Temperature Temporal [36.3-37.8 DegC] 36 .4 DegC (04/09/18 9:05 AM) Peripheral Pulse Rate [60-100 bpm] 82 bp m (04/09/18 9:05 AM) Respiratory Rate [14-20 br/min] 18 br/mi n (04/09/18 9:05 AM) Blood Pressure [90-140/60-90 mmHg] 165/1 06mmHg *HI* (04/09/18 9:05 AM) SpO2 [92-100 %] 98 % (04/09/18 9:05 AM) Oxygen Therapy Room air (04/09/18 9:05 AM) Height 187.000 cm (04/09/18 9:05 AM) Height/Length Dosing 187.000 cm (04/09/18 9:15 AM) Weight 114.450 kg (04/09/18 9:05 AM) Weight Dosing 114.450 kg (04/09/18 9:15 AM) Allergies, Adverse Reactions, Alerts No Known Medication Allergies Medications aspirin ( 81 mg ), Oral, Daily, 0 Refill(s) Start Date: 04/09/18 Status: Ordered Percocet 5/325 1 tab(s), Oral, q6hr (interval), PRN: as needed for pain, 0 Refill(s) Start Date: 04/09/18 Status: Ordered Procedures Procedure Date Related Diagnosis Body Site Status Lumbar spinal fusion Comp leted
== END 2024-11-15 12:16 | disposition home or self-care (01) ==
LOC: INJ CL 12:15
PROVIDERS: PCP Surgery; Visit Provider Family Medicine
DX: M54.16 Radiculopathy, lumbar region (principal); M51.369 Other intervertebral disc degeneration, lumbar region without mention of lumbar back pain or lower extremity pain
CPT/HCPCS: 64483; J1100; Q9966

== ENCOUNTER 2025-08-22 07:30 | Outpatient (CLI) | payer MEDICARE, MEDICAID, SELFPAY | END 2025-08-22 07:31 | disposition home or self-care (01) | PROVIDERS: PCP Surgery; Visit Provider Family Medicine | DX: M54.16 Radiculopathy, lumbar region (principal); M51.360 Other intervertebral disc degeneration, lumbar region with discogenic back pain only | CPT/HCPCS: 64483; J1100; Q9966 ==